=== PATIENT | female | born 1945 | race Caucasian/White ===

== ENCOUNTER 2016-10-03 08:31 | Emergency (ER) | payer BC ==
--- NOTE | 2016-10-03 10:09 | REP ---
RIGHT RIB SERIES: Four views of the right ribs are performed. I see no fracture or bone lesion. An accompanying view of the chest demonstrates no acute infiltrate. The heart is normal in size. There is some calcification of the thoracic aorta. IMPRESSION: No evidence of right rib fracture. Signed by Kory Goyal MD 10/03/2016 12:46 P
--- NOTE | 2016-10-03 10:52 | EDDOCDS ---
Physician Documentation [facility] Name: Niocle Maurer Age: 70 yrs Sex: Female : 1945 Arrival Date: 10/03/2016 Time: 08:31 Bed PR Private MD: Tl Roberts E. Disposition: 10/03/16 10:40 Discharged to Home/Self Care. Impression: Abrasion of right elbow, Contusion of right back wall of thorax. - Condition is Stable. - Discharge Instructions: Rib Contusion, Abrasion, Vtmr-ec-[id number], Elbow Contusion, Hydf-jh-Gxbt. - Medication Reconciliation, Local Pharmacy Hours form. - Follow up: Tl Roberts; When: Call to arrange an appointment; Reason: Further diagnostic work-up, Recheck today's complaints, Continuance of care. - Problem is new. - Symptoms are unchanged. Historical: - Allergies: Seasonal allergies; - Home Meds: 1. gabapentin 300 mg Oral cap 1 cap 3 times per day (Last dose: 10/03/2016 07:30) 2. ramipril 2.5 mg Oral cap 1 cap once daily (Last dose: 10/03/2016 07:30) 3. metformin 750 mg Oral Tb24 bid (Last dose: 10/03/2016 07:30) 4. Iron supplement BID (Last dose: 10/03/2016 07:30) 5. Lipitor 40 mg Oral tab 1 tab once daily (Last dose: 10/02/2016) 6. Vitamin D Oral 5000 unit daily (Last dose: 10/03/2016 07:30) 7. vitamin E 1,000 unit Oral cap (Last dose: 10/03/2016 07:30) 8. Vitamin B-12 Oral 1,000 mcg daily (Last dose: 10/03/2016 07:30) - PMHx: Diabetes - NIDDM: controlled; Hypercholesterolemia; Hypertension; DDD; Back and neck pain; - PSHx: Hysterectomy; Cholecystectomy; Right femur repair as a child; Lithotripsy; - Social history: Smoking status: Patient states former smoker of tobacco. No barriers to communication noted, The patient speaks fluent Latvian. - Family history: Not pertinent. - : The pt / caregiver states he / she is not on anticoagulants. Home medication list is obtained from the patient. - Exposure Risk Screening:: None identified. Vital Signs: 10/03 08:51 BP 164 / 73; Pulse 65; Resp 20; Temp 98.2(T); Pulse Ox 100% on R/A; Weight 71.67 kg / dwg 158.01 lbs; Height 5 ft. 3 in. (160.02 cm); Pain 5/10; 10:49 BP 152 / 68; Pulse 70; Resp 20; Temp 97.8(T); Pulse Ox 99% on R/A; dwg 08:51 Body Mass Index 27.99 (71.67 kg, 160.02 cm) [facility] MDM: 09:02 Rib Unilat W/PA Chest Only Ordered. EDMO 09:17 [facility] Payment Agreement was scanned into [employer] and attached to record. jp5 09:17 Financial registration complete. jp5 Signatures: Dispatcher [employer] Kory Orellana, RN RN dwMilan Hernadez PA PA btw Price, Jennalee jp5 The chart was reviewed and I authenticate all verbal orders and agree with the evaluation and treatment provided.Attachments: 09:17 [facility] Payment Agreement jp5 MTDJean Carlos
--- NOTE | 2016-10-03 10:52 | EDDOCDS ---
Nurse's Notes [facility] Name: Nicole Maurer Age: 70 yrs Sex: Female : 1945 Arrival Date: 10/03/2016 Time: 08:31 Bed PR1 / 25 Private MD: Tl Roberts E. Diagnosis: Abrasion of right elbow;Contusion of right back wall of thorax Presentation: 10/03 08:35 Presenting complaint: Patient states: Mid back and right elbow pain since slipping on a dwg step at 630AM today, abrasion noted to right elbow, no head pain, no LOC. Adult Sepsis Screening: The patient does not have new or worsening altered mentation. Patient's respiratory rate is less than 22. Systolic blood pressure is greater than 100. Patient has a qSOFA score of 0- Negative Sepsis Screen. Suicide/Homicide risk assessment- the patient denies having any suicidal and/or homicidal ideations and does not present with any other emotional, behavioral or mental health complaints. 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 Transition of care: patient was not received from another setting of care. 08:35 Acuity: PEBBLES Level 4 dwg 08:35 Method Of Arrival: Walkin/Carried/Asstd dwg Triage Assessment: 08:51 General: Appears in no apparent distress. Pain: Pain currently is 5 out of 10 on a pain dwg scale. Historical: - Allergies: Seasonal allergies; - Home Meds: 1. gabapentin 300 mg Oral cap 1 cap 3 times per day (Last dose: 10/03/2016 07:30) 2. ramipril 2.5 mg Oral cap 1 cap once daily (Last dose: 10/03/2016 07:30) 3. metformin 750 mg Oral Tb24 bid (Last dose: 10/03/2016 07:30) 4. Iron supplement BID (Last dose: 10/03/2016 07:30) 5. Lipitor 40 mg Oral tab 1 tab once daily (Last dose: 10/02/2016) 6. Vitamin D Oral 5000 unit daily (Last dose: 10/03/2016 07:30) 7. vitamin E 1,000 unit Oral cap (Last dose: 10/03/2016 07:30) 8. Vitamin B-12 Oral 1,000 mcg daily (Last dose: 10/03/2016 07:30) - PMHx: Diabetes - NIDDM: controlled; Hypercholesterolemia; Hypertension; DDD; Back and neck pain; - PSHx: Hysterectomy; Cholecystectomy; Right femur repair as a child; Lithotripsy; - Social history: Smoking status: Patient states former smoker of tobacco. No barriers to communication noted, The patient speaks fluent Italian. - Family history: Not pertinent. - : The pt / caregiver states he / she is not on anticoagulants. Home medication list is obtained from the patient. - Exposure Risk Screening:: None identified. Screenin:54 Screening information is obtained from the patient. Fall risk: No risks identified. dwg Assistance ADL's: requires no assistance with activities of daily living. Abuse/DV Screen: The patient / caregiver reports he/she is: not in a situation that causes fear, pain or injury. Nutritional screening: No deficits noted. Advance Directives: Currently, there is no health care proxy. There is no active DNR order. There is no living will. There is no Power of Block Breaker. Advance directive information has not previously been placed in an [facility] medical record. Further advance directive information is declined. home support is adequate. Assessment: 09:53 General: Appears in no apparent distress, Behavior is cooperative, pleasant. Pain: Pain [facility] currently is 7 out of 10 on a pain scale. Neurological: Level of Consciousness is awake, alert, Oriented to person, place, time. Respiratory: Airway is patent is compromised Respiratory effort is even, unlabored, Respiratory pattern is regular, symmetrical, Breath sounds are clear bilaterally. 09:53 Musculoskeletal: Circulation, motion, and sensation intact Range of motion intact in [facility] all extremities. Vital Signs: 08:51 BP 164 / 73; Pulse 65; Resp 20; Temp 98.2(T); Pulse Ox 100% on R/A; Weight 71.67 kg; [facility] Height 5 ft. 3 in. (160.02 cm); Pain 5/10; 10:49 BP 152 / 68; Pulse 70; Resp 20; Temp 97.8(T); Pulse Ox 99% on R/A; [facility] 08:51 Body Mass Index 27.99 (71.67 kg, 160.02 cm) [facility] Vitals: 08:51 Log In Time: October 03, 2016 at 08:28. [facility] ED Course: 08:32 Patient visited by Ava Morris Reg. lg 08:32 Tl Roberts is Private Physician. lg 08:32 Patient moved to Waiting lg 08:38 Triage Initiated dwg 08:53 Milan [facility]osa [facility] btw 08:53 Rosalba Yusuf MD is Attending Physician. btw 08:53 Patient moved to Triage 1 dwg 08:54 Patient visited by Milan Sosa PA. btw 09:17 [facility] Payment Agreement was scanned into [employer] and attached to record. jp5 09:20 Patient name changed from Nicole\S\A\S\Shawcross\S\ to Incole\S\Gianna\S\Shawcross. EDMS 09:23 Patient moved to Radiology bh4 09:25 Patient moved to TR1 dwg 09:26 Patient moved to Radiology bh4 09:41 Patient moved to TR1 bh4 09:54 Patient visited by Kory Torres RN. dwg 10:34 Rib Unilat W/PA Chest Only Returned. EDMS 10:39 Tl Roberts is Referral Physician. btw 10:43 Patient moved to PR1 / 25 dwg 10:51 No IV's were initiated during this patient's visit. No procedures done that require dwg assistance. 10:52 The patient / caregiver is instructed regarding the plan of care and ED course. dwg Order Results: Radiology Order: Rib Unilat W/PA Chest Only Test: Rib Unilat W/PA Chest Only REASON FOR EXAMINATION: pain Right posterior lower ribs;Trauma; ; RIGHT RIB SERIES:; ; Four views of the right ribs are performed.; ; I see no fracture or bone lesion.; ; An accompanying view of the chest demonstrates no acute infiltrate. The heart is; normal in size. There is some calcification of the thoracic aorta.; ; IMPRESSION:; No evidence of right rib fracture.; ; ; ; Unreviewed; Outcome: 10:40 Discharge ordered by Provider. btw 10:51 Discharge Assessment: Patient awake, alert and oriented x 3. No cognitive and/or dwg functional deficits noted. Patient verbalized understanding of disposition instructions. patient administered narcotics - no. The following High Risk Discharge criteria are identified: None. Discharged to home ambulatory. Condition: good Condition: stable. No special radiology studies were completed. Property sent home with patient. 10:52 Patient left the ED. dwg Signatures: Dispatcher [employer] Kory Orellana, ALLEY RN Ava Dillon Reg Reg lg [facility], [facility] Milan Sosa PA PA btw Price, Jennalee jp5 MTDD
--- NOTE | 2016-10-05 11:52 | EDDOCDS ---
Physician Documentation [facility] Name: Nicole Maurer Age: 70 yrs Sex: Female : 1945 Arrival Date: 10/03/2016 Time: 08:31 Bed PR Private MD: Tl Roberts E. Disposition: 10/03/16 10:40 Discharged to Home/Self Care. Impression: Abrasion of right elbow, Contusion of right back wall of thorax. - Condition is Stable. - Discharge Instructions: Rib Contusion, Abrasion, Slii-rl-Lceo, Elbow Contusion, Syvf-yc-Lckp. - Medication Reconciliation, Local Pharmacy Hours form. - Follow up: Tl Roberts; When: Call to arrange an appointment; Reason: Further diagnostic work-up, Recheck today's complaints, Continuance of care. - Problem is new. - Symptoms are unchanged. Historical: - Allergies: Seasonal allergies; - Home Meds: 1. gabapentin 300 mg Oral cap 1 cap 3 times per day (Last dose: 10/03/2016 07:30) 2. ramipril 2.5 mg Oral cap 1 cap once daily (Last dose: 10/03/2016 07:30) 3. metformin 750 mg Oral Tb24 bid (Last dose: 10/03/2016 07:30) 4. Iron supplement BID (Last dose: 10/03/2016 07:30) 5. Lipitor 40 mg Oral tab 1 tab once daily (Last dose: 10/02/2016) 6. Vitamin D Oral 5000 unit daily (Last dose: 10/03/2016 07:30) 7. vitamin E 1,000 unit Oral cap (Last dose: 10/03/2016 07:30) 8. Vitamin B-12 Oral 1,000 mcg daily (Last dose: 10/03/2016 07:30) - PMHx: Diabetes - NIDDM: controlled; Hypercholesterolemia; Hypertension; DDD; Back and neck pain; - PSHx: Hysterectomy; Cholecystectomy; Right femur repair as a child; Lithotripsy; - Social history: Smoking status: Patient states former smoker of tobacco. No barriers to communication noted, The patient speaks fluent Surinamese. - Family history: Not pertinent. - : The pt / caregiver states he / she is not on anticoagulants. Home medication list is obtained from the patient. - Exposure Risk Screening:: None identified. Vital Signs: 10/03 08:51 BP 164 / 73; Pulse 65; Resp 20; Temp 98.2(T); Pulse Ox 100% on R/A; Weight 71.67 kg / dwg 158.01 lbs; Height 5 ft. 3 in. (160.02 cm); Pain 5/10; 10:49 BP 152 / 68; Pulse 70; Resp 20; Temp 97.8(T); Pulse Ox 99% on R/A; dwg 08:51 Body Mass Index 27.99 (71.67 kg, 160.02 cm) [facility] MDM: 09:02 Rib Unilat W/PA Chest Only Ordered. EDMS : [facility] Payment Agreement was scanned into [employer] and attached to record. jp5 :17 Financial registration complete. jp5 14:42 T-Sheet-- Draft Copy was scanned into [employer] and attached to record. gb Signatures: Dispatcher [employer] EDKory Marcelo RN RN dwg Charo William, Reg Reg gb Milan Sosa PA PA btw Franky Saldana jp5 The chart was reviewed and I authenticate all verbal orders and agree with the evaluation and treatment provided.Attachments: : [facility] Payment Agreement jp5 14:42 T-Sheet-- Draft Copy gb Chart Complete MTDD
--- NOTE | 2016-10-05 11:52 | EDDOCDS ---
Physician Documentation [facility] Name: Nicole Maurer Age: 70 yrs Sex: Female : 1945 Arrival Date: 10/03/2016 Time: 08:31 Bed PR Private MD: Tl Roberts E. Disposition: 10/03/16 10:40 Discharged to Home/Self Care. Impression: Abrasion of right elbow, Contusion of right back wall of thorax. - Condition is Stable. - Discharge Instructions: Rib Contusion, Abrasion, Oynp-wh-Ixyw, Elbow Contusion, Byko-an-Xsgk. - Medication Reconciliation, Local Pharmacy Hours form. - Follow up: Tl Roberts; When: Call to arrange an appointment; Reason: Further diagnostic work-up, Recheck today's complaints, Continuance of care. - Problem is new. - Symptoms are unchanged. Historical: - Allergies: Seasonal allergies; - Home Meds: 1. gabapentin 300 mg Oral cap 1 cap 3 times per day (Last dose: 10/03/2016 07:30) 2. ramipril 2.5 mg Oral cap 1 cap once daily (Last dose: 10/03/2016 07:30) 3. metformin 750 mg Oral Tb24 bid (Last dose: 10/03/2016 07:30) 4. Iron supplement BID (Last dose: 10/03/2016 07:30) 5. Lipitor 40 mg Oral tab 1 tab once daily (Last dose: 10/02/2016) 6. Vitamin D Oral 5000 unit daily (Last dose: 10/03/2016 07:30) 7. vitamin E 1,000 unit Oral cap (Last dose: 10/03/2016 07:30) 8. Vitamin B-12 Oral 1,000 mcg daily (Last dose: 10/03/2016 07:30) - PMHx: Diabetes - NIDDM: controlled; Hypercholesterolemia; Hypertension; DDD; Back and neck pain; - PSHx: Hysterectomy; Cholecystectomy; Right femur repair as a child; Lithotripsy; - Social history: Smoking status: Patient states former smoker of tobacco. No barriers to communication noted, The patient speaks fluent Azerbaijani. - Family history: Not pertinent. - : The pt / caregiver states he / she is not on anticoagulants. Home medication list is obtained from the patient. - Exposure Risk Screening:: None identified. Vital Signs: 10/03 08:51 BP 164 / 73; Pulse 65; Resp 20; Temp 98.2(T); Pulse Ox 100% on R/A; Weight 71.67 kg / dwg 158.01 lbs; Height 5 ft. 3 in. (160.02 cm); Pain 5/10; 10:49 BP 152 / 68; Pulse 70; Resp 20; Temp 97.8(T); Pulse Ox 99% on R/A; dwg 08:51 Body Mass Index 27.99 (71.67 kg, 160.02 cm) [facility] MDM: 09:02 Rib Unilat W/PA Chest Only Ordered. EDMS : [facility] Payment Agreement was scanned into [employer] and attached to record. jp5 :17 Financial registration complete. jp5 14:42 T-Sheet-- Draft Copy was scanned into [employer] and attached to record. gb Signatures: Dispatcher [employer] EDKory Marcelo RN RN dwg Charo William, Reg Reg gb Milan Sosa PA PA btw Franky Saldana jp5 The chart was reviewed and I authenticate all verbal orders and agree with the evaluation and treatment provided.Attachments: : [facility] Payment Agreement jp5 14:42 T-Sheet-- Draft Copy gb Chart Complete MTDD
--- NOTE | 2016-10-05 11:52 | EDDOCDS ---
Nurse's Notes [facility] Name: Nicole Maurer Age: 70 yrs Sex: Female : 1945 Arrival Date: 10/03/2016 Time: 08:31 Bed PR1 / 25 Private MD: Tl Roberts E. Diagnosis: Abrasion of right elbow;Contusion of right back wall of thorax Presentation: 10/03 08:35 Presenting complaint: Patient states: Mid back and right elbow pain since slipping on a dwg step at 630AM today, abrasion noted to right elbow, no head pain, no LOC. Adult Sepsis Screening: The patient does not have new or worsening altered mentation. Patient's respiratory rate is less than 22. Systolic blood pressure is greater than 100. Patient has a qSOFA score of 0- Negative Sepsis Screen. Suicide/Homicide risk assessment- the patient denies having any suicidal and/or homicidal ideations and does not present with any other emotional, behavioral or mental health complaints. Status: Patient is not a rehabilitation services aide or dependent. Transition of care: patient was not received from another setting of care. 08:35 Acuity: PEBBLES Level 4 dwg 08:35 Method Of Arrival: Walkin/Carried/Asstd dwg Triage Assessment: 08:51 General: Appears in no apparent distress. Pain: Pain currently is 5 out of 10 on a pain dwg scale. Historical: - Allergies: Seasonal allergies; - Home Meds: 1. gabapentin 300 mg Oral cap 1 cap 3 times per day (Last dose: 10/03/2016 07:30) 2. ramipril 2.5 mg Oral cap 1 cap once daily (Last dose: 10/03/2016 07:30) 3. metformin 750 mg Oral Tb24 bid (Last dose: 10/03/2016 07:30) 4. Iron supplement BID (Last dose: 10/03/2016 07:30) 5. Lipitor 40 mg Oral tab 1 tab once daily (Last dose: 10/02/2016) 6. Vitamin D Oral 5000 unit daily (Last dose: 10/03/2016 07:30) 7. vitamin E 1,000 unit Oral cap (Last dose: 10/03/2016 07:30) 8. Vitamin B-12 Oral 1,000 mcg daily (Last dose: 10/03/2016 07:30) - PMHx: Diabetes - NIDDM: controlled; Hypercholesterolemia; Hypertension; DDD; Back and neck pain; - PSHx: Hysterectomy; Cholecystectomy; Right femur repair as a child; Lithotripsy; - Social history: Smoking status: Patient states former smoker of tobacco. No barriers to communication noted, The patient speaks fluent Armenian. - Family history: Not pertinent. - : The pt / caregiver states he / she is not on anticoagulants. Home medication list is obtained from the patient. - Exposure Risk Screening:: None identified. Screenin:54 Screening information is obtained from the patient. Fall risk: No risks identified. dwg Assistance ADL's: requires no assistance with activities of daily living. Abuse/DV Screen: The patient / caregiver reports he/she is: not in a situation that causes fear, pain or injury. Nutritional screening: No deficits noted. Advance Directives: Currently, there is no health care proxy. There is no active DNR order. There is no living will. There is no Power of Tape Recorder Mechanic. Advance directive information has not previously been placed in an [facility] medical record. Further advance directive information is declined. home support is adequate. Assessment: 09:53 General: Appears in no apparent distress, Behavior is cooperative, pleasant. Pain: Pain [facility] currently is 7 out of 10 on a pain scale. Neurological: Level of Consciousness is awake, alert, Oriented to person, place, time. Respiratory: Airway is patent is compromised Respiratory effort is even, unlabored, Respiratory pattern is regular, symmetrical, Breath sounds are clear bilaterally. 09:53 Musculoskeletal: Circulation, motion, and sensation intact Range of motion intact in [facility] all extremities. Vital Signs: 08:51 BP 164 / 73; Pulse 65; Resp 20; Temp 98.2(T); Pulse Ox 100% on R/A; Weight 71.67 kg; [facility] Height 5 ft. 3 in. (160.02 cm); Pain 5/10; 10:49 BP 152 / 68; Pulse 70; Resp 20; Temp 97.8(T); Pulse Ox 99% on R/A; [facility] 08:51 Body Mass Index 27.99 (71.67 kg, 160.02 cm) [facility] Vitals: 08:51 Log In Time: October 03, 2016 at 08:28. [facility] ED Course: 08:32 Patient visited by Ava Morris Reg. lg 08:32 Tl Roberts is Private Physician. lg 08:32 Patient moved to Waiting lg 08:38 Triage Initiated dwg 08:53 [facility] btw 08:53 Rosalba Yusuf MD is Attending Physician. btw 08:53 Patient moved to Triage 1 dwg 08:54 Patient visited by Milan Sosa PA. btw 09:17 [facility] Payment Agreement was scanned into [employer] and attached to record. jp5 09:20 Patient name changed from Nicole\S\A\S\Shawcross\S\ to Nicole\S\Gianna\S\Shawcross. EDMS 09:23 Patient moved to Radiology bh4 09:25 Patient moved to TR1 dwg 09:26 Patient moved to Radiology bh4 09:41 Patient moved to TR1 bh4 09:54 Patient visited by Kory Torres RN. dwg 10:34 Rib Unilat W/PA Chest Only Returned. EDMS 10:39 Tl Roberts is Referral Physician. btw 10:43 Patient moved to PR1 / 25 dwg 10:51 No IV's were initiated during this patient's visit. No procedures done that require dwg assistance. 10:52 The patient / caregiver is instructed regarding the plan of care and ED course. dwg 14:42 T-Sheet-- Draft Copy was scanned into [employer] and attached to record. gb Order Results: Radiology Order: Rib Unilat W/PA Chest Only Test: Rib Unilat W/PA Chest Only REASON FOR EXAMINATION: pain Right posterior lower ribs;Trauma; RIGHT RIB SERIES:; ; Four views of the right ribs are performed.; ; I see no fracture or bone lesion.; ; An accompanying view of the chest demonstrates no acute infiltrate. The heart is; normal in size. There is some calcification of the thoracic aorta.; ; IMPRESSION:; ; No evidence of right rib fracture.; ; ; Signed by; Kory Goyal MD 10/03/2016 12:46 P; Outcome: 10:40 Discharge ordered by Provider. btw 10:51 Discharge Assessment: Patient awake, alert and oriented x 3. No cognitive and/or dwg functional deficits noted. Patient verbalized understanding of disposition instructions. patient administered narcotics - no. The following High Risk Discharge criteria are identified: None. Discharged to home ambulatory. Condition: good Condition: stable. No special radiology studies were completed. Property sent home with patient. 10:52 Patient left the ED. daryl Signatures: Dispatcher [employer] Kory Orellana, RN RN dw Charo William, Reg Reg gb Ava Morris, Reg Reg lg Benson, Heide bh4 Milan Sosa PA PA btw Price, Jennalee 5 Chart Complete MTDD
== END 2016-10-03 10:52 | disposition home or self-care (01) ==
LOC: M ED 08:31
DX: S20.221A Contusion of right back wall of thorax, initial encounter (principal); S50.311A Abrasion of right elbow, initial encounter; W01.0XXA Fall on same level from slipping, tripping and stumbling without subsequent striking against object, initial encounter; Y92.098 Other place in other non-institutional residence as the place of occurrence of the external cause; Y93.89 Activity, other specified; Y99.8 Other external cause status; E11.9 Type 2 diabetes mellitus without complications; I10 Essential (primary) hypertension; E78.00 Pure hypercholesterolemia, unspecified; M51.9 Unspecified thoracic, thoracolumbar and lumbosacral intervertebral disc disorder; J30.2 Other seasonal allergic rhinitis; Z79.899 Other long term (current) drug therapy; Z79.84 Long term (current) use of oral hypoglycemic drugs

== ENCOUNTER → 2016-10-12 | Outpatient (CLI) | payer BC ==
[2016-10-12 18:18] LABS: BASO % 0.2 % (0.0-1.0); EOS # 0.1 K/mm3 (0.0-0.50); EOS % 2.5 % (0.0-3.0); LARGE UNSTAINED CELL # 0.1 K/mm3 (0.0-0.4); LARGE UNSTAINED CELL % 1.4 % (0.0-4.0); LYMPH # 1.4 K/mm3 (1.5-4.5); LYMPH % 31.3 % (24.0-44.0); MEAN CORPUSCULAR HEMOGLOBIN 27.4 pg (27.0-33.0); MEAN CORPUSCULAR HGB CONC 31.3 g/dl (32.0-36.5); MEAN CORPUSCULAR VOLUME 87.6 fl (80.0-96.0); MONO # 0.3 K/mm3 (0.0-0.8); MONO % 7.4 % (0.0-5.0); NEUTROPHILS # 2.5 K/mm3 (1.8-7.7); NEUTROPHILS % 57.2 % (36.0-66.0); PLATELET COUNT, AUTOMATED 230 k/mm3 (150-450); RED CELL DISTRIBUTION WIDTH 13.4 % (11.5-14.5); WHITE BLOOD COUNT 4.3 K/mm3 (4.0-10.0)
[2016-10-12 18:37] LABS: FERRITIN 5 NG/ML (8-252); FREE T4 1.58 NG/DL (0.76-1.46); PERCENT SATURATION 12.9 % (13.2-37.4); TOTAL IRON BINDING CAPACITY 441 UG/DL (250-450)
== END ==
LOC: M WUC 10:19
PROVIDERS: ATTEND Family Medicine
DX: D47.2 Monoclonal gammopathy (principal); D50.9 Iron deficiency anemia, unspecified; E03.9 Hypothyroidism, unspecified; K21.9 Gastro-esophageal reflux disease without esophagitis

== ENCOUNTER → 2016-11-30 | Outpatient (CLI) | payer BC ==
[2016-11-30 19:52] LABS: BASO % 0.3 % (0.0-1.0); EOS # 0.1 K/mm3 (0.0-0.50); EOS % 1.3 % (0.0-3.0); LARGE UNSTAINED CELL # 0.1 K/mm3 (0.0-0.4); LARGE UNSTAINED CELL % 1.2 % (0.0-4.0); LYMPH # 1.7 K/mm3 (1.5-4.5); LYMPH % 33.6 % (24.0-44.0); MEAN CORPUSCULAR HGB CONC 30.3 g/dl (32.0-36.5); MEAN CORPUSCULAR VOLUME 89.3 fl (80.0-96.0); MONO # 0.3 K/mm3 (0.0-0.8); MONO % 6.1 % (0.0-5.0); NEUTROPHILS # 2.7 K/mm3 (1.8-7.7); NEUTROPHILS % 57.5 % (36.0-66.0); PLATELET COUNT, AUTOMATED 229 k/mm3 (150-450); RED CELL DISTRIBUTION WIDTH 13.4 % (11.5-14.5); WHITE BLOOD COUNT 4.8 K/mm3 (4.0-10.0)
== END ==
LOC: M WUC 08:28
PROVIDERS: ATTEND Family Medicine
DX: D50.9 Iron deficiency anemia, unspecified (principal); E11.9 Type 2 diabetes mellitus without complications

== ENCOUNTER → 2016-12-03 | Outpatient (REF) | payer BC | LOC: M SFHCPLAZ 12:23 | PROVIDERS: ATTEND Family Medicine | DX: R07.9 Chest pain, unspecified (principal) ==

== ENCOUNTER → 2016-12-06 | Outpatient (CLI) | payer BC ==
--- NOTE | 2016-12-06 15:54 | REPMRS ---
Patient History The patient states she has not had a clinical breast exam in over a year. Patient is postmenopausal. Family history of breast cancer in sister at age 70. Benign radio exam breast specimen of the left breast, October 18, 2013. Benign stereotatic loc for ea lesion of the left breast, October 18, 2013. Digital Woman Screen Mammo: December 06, 2016 - Exam #: [id number] Bilateral CC and MLO view(s) were taken. Technologist: Patricia Aguilar, Technologist Prior study comparison: December 06, 2015, digital woman screen mammo performed at [facility]. November 16, 2014, bilateral digital mammo screening bilat, performed at [facility]. FINDINGS: There are scattered fibroglandular densities. There has been no change in the appearance of the mammogram from the prior studies. There is a mild amount of residual fibroglandular tissue which is fairly symmetric with scattered fibronodular densities unchanged. There is no interval development of dominant mass, architectural distortion, or clustered microcalcification suggestive of malignancy. Stereotactic clip in the left breast unchanged. There are scattered, small, benign calcifications of doubtful clinical significance. No significant changes when compared with prior studies. ASSESSMENT: BI-RADS/ACR category 2 mammogram. Benign finding(s). Recommendation Routine screening mammogram in 1 year (for women over age 40). This mammogram was interpreted with the aid of an FDA-approved computer-aided dectection system. A. Negative x-ray reports should not delay biopsy if a dominant or clinically suspicious mass is present. B. Four to eight percent of cancers are not identified by mammography. C. Adenosis and dense breast may obscure an underlying neoplasm. Electronically Signed By: Luke Simpson MD 12/06/16 2277
== END ==
LOC: M WHC 15:22
PROVIDERS: ATTEND Family Medicine
DX: Z12.31 Encounter for screening mammogram for malignant neoplasm of breast (principal); Z78.0 Asymptomatic menopausal state; R92.8 Other abnormal and inconclusive findings on diagnostic imaging of breast

== ENCOUNTER → 2017-02-05 | Outpatient (CLI) | payer BC ==
[~2017-02-05] VITALS: Ht 160 cm; Wt 67.6 kg
[~2017-02-05] MED LIST: ASPI1TAB PO; DEXI60CA PO; GABA-283 PO; LEVO112T25 PO; LIDOCAINE 2% INJ 100 MG/5 ML SDV (FOR ANES.) As Ordered ONE; LIPI20TA PO; METF750T PO; NS 1,000 ML IV ONE; POLY150C4 PO; PROPOFOL 200 MG/20 ML VIAL As Ordered ONE; RAMI25CA PO; VITA100037 PO; VITA100072 PO; VOLT1GEL24 TD
--- NOTE | 2017-02-05 12:23 | ROOR ---
Patient Name: Nicole Maurer Procedure Date: 02/05/2017 12:07 PM Date of : 1945 Age: 71 Room: [facility] Gender: Female Note Status: Finalized Procedure: Upper GI endoscopy + Small bowel bx. Indications: Iron deficiency anemia Providers: Hernandez Lopes MD Referring MD: Tl Roberts MD Requesting Provider: Medicines: Monitored Anesthesia Care Complications: No immediate complications. Procedure: Pre-Anesthesia Assessment: - The heart rate, respiratory rate, oxygen saturations, blood pressure, adequacy of pulmonary ventilation, and response to care were monitored throughout the procedure. The Endoscope was introduced through the mouth, and advanced to the second part of duodenum. The upper GI endoscopy was accomplished without difficulty. The patient tolerated the procedure well. Findings: The Z-line was irregular and was found 35 cm from the incisors. A medium-sized hiatal hernia was present. No other significant abnormalities were identified in a careful examination of the stomach. The exam of the duodenum was otherwise normal. Biopsies for histology were taken with a cold forceps in the first portion of the duodenum for evaluation of celiac disease. The exam was otherwise without abnormality. Impression: - Z-line irregular, 35 cm from the incisors. - Medium-sized hiatal hernia. - The examination was otherwise normal. - Biopsies were taken with a cold forceps for evaluation of celiac disease. - The examination was otherwise normal. Recommendation: - Patient has a contact number available for emergencies. The signs and symptoms of potential delayed complications were discussed with the patient. Return to normal activities tomorrow. Written discharge instructions were provided to the patient. - High fiber diet. - Discharge patient to home. - Continue present medications. - Await pathology results. - Telephone GI clinic for pathology results in 1 week. - Return to referring physician. - The findings and recommendations were discussed with the patient's family. Hernandez Lopes MD Hernandez Lopes MD 02/05/2017 12:22:56 PM This report has been signed electronically. Number of Addenda: 0 Note Initiated On: 02/05/2017 12:07 PM Estimated Blood Loss: Estimated blood loss: none.
--- NOTE | 2017-02-05 12:38 | ROOR ---
Patient Name: Nicole Maurer Procedure Date: 02/05/2017 12:08 PM Date of : 1945 Age: 71 Room: [facility] Gender: Female Note Status: Finalized Procedure: Total Colonoscopy to Cecum Indications: Iron deficiency anemia Providers: Hernandez Lopes MD Referring MD: Tl Roberts MD Requesting Provider: Medicines: Monitored Anesthesia Care Complications: No immediate complications. Procedure: Pre-Anesthesia Assessment: - The heart rate, respiratory rate, oxygen saturations, blood pressure, adequacy of pulmonary ventilation, and response to care were monitored throughout the procedure. The Colonoscope was introduced through the anus and advanced to the cecum, identified by appendiceal orifice and ileocecal valve. The colonoscopy was performed without difficulty. The patient tolerated the procedure well. The quality of the bowel preparation was good. Findings: The perianal and digital rectal examinations were normal. Non-bleeding internal hemorrhoids were found during retroflexion. The hemorrhoids were small and Grade I (internal hemorrhoids that do not prolapse). Scattered small and large-mouthed diverticula were found in the recto-sigmoid colon, sigmoid colon and descending colon. The exam was otherwise without abnormality on direct and retroflexion views. Impression: - Non-bleeding internal hemorrhoids. - Diverticulosis in the recto-sigmoid colon, in the sigmoid colon and in the descending colon. - The examination was otherwise normal on direct and retroflexion views. - No specimens collected. - The exam was otherwise normal to the cecum. Recommendation: - Patient has a contact number available for emergencies. The signs and symptoms of potential delayed complications were discussed with the patient. Return to normal activities tomorrow. Written discharge instructions were provided to the patient. - High fiber diet. - Discharge patient to home. - Continue present medications. - Repeat colonoscopy for symptoms only. - Return to referring physician. - The findings and recommendations were discussed with the patient's family. Hernandez Lopes MD Hernandez Lopes MD 02/05/2017 12:38:19 PM This report has been signed electronically. Number of Addenda: 0 Note Initiated On: 02/05/2017 12:08 PM Estimated Blood Loss: Estimated blood loss: none.
[2017-02-05 12:45] VITALS: BP 143/63
== END | disposition home or self-care (01) ==
LOC: M OPP 11:16
PROVIDERS: ATTEND Internal Medicine Gastroenterology
DX: D50.9 Iron deficiency anemia, unspecified (principal); R63.4 Abnormal weight loss; R68.81 Early satiety; R11.0 Nausea; K64.0 First degree hemorrhoids; K57.30 Diverticulosis of large intestine without perforation or abscess without bleeding; K22.8 Other specified diseases of esophagus; K44.9 Diaphragmatic hernia without obstruction or gangrene; K59.00 Constipation, unspecified; R07.89 Other chest pain; I10 Essential (primary) hypertension; E78.5 Hyperlipidemia, unspecified; E11.9 Type 2 diabetes mellitus without complications; E03.9 Hypothyroidism, unspecified; K76.0 Fatty (change of) liver, not elsewhere classified; R12 Heartburn; M19.90 Unspecified osteoarthritis, unspecified site; G47.8 Other sleep disorders; R06.83 Snoring; Z87.442 Personal history of urinary calculi; Z91.048 Other nonmedicinal substance allergy status; Z79.82 Long term (current) use of aspirin; Z79.84 Long term (current) use of oral hypoglycemic drugs; Z79.899 Other long term (current) drug therapy; Z87.891 Personal history of nicotine dependence; Z80.3 Family history of malignant neoplasm of breast

== ENCOUNTER → 2017-03-03 | Outpatient (REF) | payer BC ==
[~2017-03-03] MED LIST changes: -LIDOCAINE 2% INJ 100 MG/5 ML SDV (FOR ANES.) As Ordered ONE; -NS 1,000 ML IV ONE; -PROPOFOL 200 MG/20 ML VIAL As Ordered ONE
[2017-03-03 11:51] LABS: BASO % 0.4 % (0.0-1.0); EOS # 0.1 K/mm3 (0.0-0.50); EOS % 1.8 % (0.0-3.0); LARGE UNSTAINED CELL # 0.1 K/mm3 (0.0-0.4); LARGE UNSTAINED CELL % 1.5 % (0.0-4.0); LYMPH # 1.5 K/mm3 (1.5-4.5); LYMPH % 34.1 % (24.0-44.0); MEAN CORPUSCULAR HEMOGLOBIN 28.4 pg (27.0-33.0); MEAN CORPUSCULAR HGB CONC 31.9 g/dl (32.0-36.5); MEAN CORPUSCULAR VOLUME 88.8 fl (80.0-96.0); MONO # 0.2 K/mm3 (0.0-0.8); MONO % 5.5 % (0.0-5.0); NEUTROPHILS # 2.5 K/mm3 (1.8-7.7); NEUTROPHILS % 56.7 % (36.0-66.0); PLATELET COUNT, AUTOMATED 207 k/mm3 (150-450); RED CELL DISTRIBUTION WIDTH 14.1 % (11.5-14.5); WHITE BLOOD COUNT 4.5 K/mm3 (4.0-10.0)
[2017-03-03 12:42] LABS: ALBUMIN 3.7 GM/DL (3.2-5.2); ALBUMIN/GLOBULIN RATIO 1.28 (1.00-1.93); BILIRUBIN,TOTAL 0.3 MG/DL (0.2-1.0); CALCIUM LEVEL 9.2 MG/DL (8.8-10.2); GLOMERULAR FILTRATION RATE 58.2 (>39); PERCENT SATURATION 20.5 % (13.2-37.4); POTASSIUM SERUM 4.8 MEQ/L (3.5-5.1); TOTAL PROTEIN 6.6 GM/DL (6.4-8.2)
[2017-03-04 12:44] LABS: PRETREATED FOLATE FOR RBCFOL 7.6 NG/ML
== END ==
LOC: M LABDRAW1 11:14
PROVIDERS: ATTEND Family Medicine
DX: E53.8 Deficiency of other specified B group vitamins (principal); E55.9 Vitamin D deficiency, unspecified; D50.9 Iron deficiency anemia, unspecified; E11.9 Type 2 diabetes mellitus without complications

== ENCOUNTER → 2017-03-08 | Outpatient (CLI) | payer BC ==
[~2017-03-08] MED LIST changes: +CYCL5TAB PO; -DEXI60CA PO; +DEXI60CA2 PO; +PRED20TA PO; -VITA100037 PO; +VITA100067 PO; +VOLT1GEL15 TD; -VOLT1GEL24 TD
--- NOTE | 2017-03-08 09:32 | REP ---
Clinical: Pain. Spondylosis. Technique: AP, lateral, bilateral oblique, flexion/extension, open-mouth and swimmer's views of the cervical spine. Findings: Alignment and lordosis maintained. No acute fracture / compression injury or subluxation. Moderate to early advanced multilevel degenerative changes are appreciated including marginal spurring, endplate sclerosis and minimal hypertrophic facet changes. Findings are most pronounced at the C5-6 and C4-5 levels. Open mouth view demonstrates normal C1-C2 articulation and odontoid process. Impression: Moderate to early advanced multilevel degenerative changes as described above. No acute fracture / compression injury or subluxation. Signed by Shiraz Summers MD 03/08/2017 09:24 A
--- NOTE | 2017-03-08 09:35 | REP ---
Clinical: Back pain. Spondylosis. Technique: AP, lateral, bilateral oblique and coned-down views of the lumbosacral spine. Comparison: 04/29/2016. Findings: Alignment and lordosis maintained. No acute fracture / compression injury or subluxation. Moderate multilevel degenerative changes include marginal spurring, endplate sclerosis, hypertrophic facet changes. Findings are most pronounced at the L5-S1 level. Impression: Moderate multilevel degenerative changes essentially stable compared to 04/29/2016. No acute fracture / compression injury or subluxation. Signed by Shiraz Summers MD 03/08/2017 09:27 A
== END ==
LOC: M WUC 08:46
PROVIDERS: ATTEND Family Medicine
DX: M50.30 Other cervical disc degeneration, unspecified cervical region (principal); M47.816 Spondylosis without myelopathy or radiculopathy, lumbar region

== ENCOUNTER → 2017-06-14 | Outpatient (REF) | payer BC ==
[2017-06-14 13:30] LABS: BASO % 0.2 % (0.0-1.0); EOS # 0.1 10^3/uL (0.0-0.50); EOS % 2.1 % (0.0-3.0); IMMATURE GRANULOCYTE % 0.2 % (0-0); LYMPH # 1.7 10^3/uL (1.5-4.5); LYMPH % 35.2 % (24.0-44.0); MEAN CORPUSCULAR HEMOGLOBIN 28.6 pg (27.0-33.0); MEAN CORPUSCULAR HGB CONC 32.1 g/dl (32.0-36.5); MEAN CORPUSCULAR VOLUME 89.1 fl (80.0-96.0); MONO # 0.4 10^3/uL (0.0-0.8); MONO % 7.9 % (0.0-5.0); NEUTROPHILS # 2.6 10^3/uL (1.8-7.7); NEUTROPHILS % 54.4 % (36.0-66.0); PLATELET COUNT, AUTOMATED 205 10^3/uL (150-450); RED CELL DISTRIBUTION WIDTH 14.7 % (11.5-14.5); WHITE BLOOD COUNT 4.7 10^3/uL (4.0-10.0)
[2017-06-14 13:32] LABS: ADD MANUAL DIFFER NO; DIFF SLIDE NUMBER 152
[2017-06-18 08:09] LABS: FREE KAPPA LIGHT CHAINS URINE 1.31 mg/L (1.35-24.19); FREE LAMBDA LIGHT CHAINS URINE 0.09 mg/L (0.24-6.66)
== END ==
LOC: M LABWUC 12:59
PROVIDERS: ATTEND Family Medicine
DX: E11.9 Type 2 diabetes mellitus without complications (principal); D50.9 Iron deficiency anemia, unspecified; D47.2 Monoclonal gammopathy; E03.9 Hypothyroidism, unspecified; E53.8 Deficiency of other specified B group vitamins

== ENCOUNTER → 2017-07-17 | Outpatient (REF) | payer BC ==
[2017-07-17 13:51] LABS: VITAMIN B12 LEVEL 1012 PG/ML
[2017-07-17 13:52] LABS: FOLATE 8.4 NG/ML
[2017-07-17 13:57] LABS: CHOLESTEROL LEVEL 171 MG/DL (<200); TRIGLYCERIDES LEVEL 156 MG/DL (<150)
[2017-07-22 08:11] LABS: VITAMIN E LEVEL 9.8 mg/L (6.5-21.5)
== END ==
LOC: M LABNEURO 11:20
PROVIDERS: ATTEND Psychiatry & Neurology Neurology
DX: Z13.1 Encounter for screening for diabetes mellitus (principal); Z13.29 Encounter for screening for other suspected endocrine disorder

== ENCOUNTER → 2017-07-17 | Outpatient (CLI) | payer BC ==
[~2017-07-17] MED LIST changes: +PROHANCE 279.3MG/ML 15ML VIAL (A9576) As Ordered ONE
--- NOTE | 2017-07-17 17:06 | REP ---
Bilateral carotid artery duplex ultrasound: Peak flow velocity analysis: RIGHT LEFT ICA Peak flow velocity cm/sec 67 67 ICA Diastolic flow velocity cm/sec 22 23 ICA/CCA Ratio 0.87 0.83 ECA Peak flow velocity cm/sec 78 74 CCA Peak flow velocity cm/sec 77 79 The there is mild atheromatous plaque in the in the common carotid arteries and bulbs. This extends into the proximal internal carotid artery on the left. Peak flow velocities are normal bilaterally. The findings indicate less than 50% stenosis bilaterally. There is no significant narrowing on the right or the left. There is antegrade flow in the vertebral arteries bilaterally. Impression: There is no significant stenosis on the right or the left. Signed by Kory Choudhury MD 07/17/2017 04:58 P
--- NOTE | 2017-07-17 20:40 | REPUSA ---
MRI of the brain. Clinical history: headaches. Technique: Multiecho multiplanar MRI images of the brain were obtained before and after administratio n of 6 mL of Prohance intravenous gadolinium contrast. Comparison: 07/08/2017. Findings: The ventricles and sulci are symmetric bilaterally. The brain parenchyma demonstrates stable extensiv e periventricular and sub cortical T2 hyperintensity changes. There is no midline shift, mass effect, or extra-axial fluid collection. The midline intracranial structures do not demonstrate any gross ab normalities. The cervical cranial junction is intact. The orbits are unremarkable. The visualized par anasal sinuses and mastoid air cells are clear. The osseous structures and superficial soft tissues a re unremarkable. The vascular structures demonstrate appropriate flow voids. There are no abnormal en hancing lesions. The vascular structures enhance appropriately. Impression: 1. No evidence of acute infarct or hemorrhage. 2. No abnormal areas of enhancement. 3. Moderate chronic small vessel ischemic changes, grossly stable.
== END ==
LOC: M RAD 16:22
PROVIDERS: ATTEND Physician Assistant Medical
DX: I63.9 Cerebral infarction, unspecified (principal)
CPT/HCPCS: 70553; 93880; A9576

== ENCOUNTER → 2017-09-16 | Outpatient (CLI) | payer BC, MEDICARE ==
[2017-09-16 13:37] LABS: BASO % 0.2 % (0.0-1.0); EOS % 0.8 % (0.0-3.0); IMMATURE GRANULOCYTE % 0.4 % (0-0); LYMPH # 1.6 10^3/uL (1.5-4.5); LYMPH % 30.8 % (24.0-44.0); MEAN CORPUSCULAR HEMOGLOBIN 30.3 pg (27.0-33.0); MEAN CORPUSCULAR HGB CONC 33.3 g/dl (32.0-36.5); MEAN CORPUSCULAR VOLUME 90.9 fl (80.0-96.0); MONO # 0.3 10^3/uL (0.0-0.8); NEUTROPHILS # 3.3 10^3/uL (1.8-7.7); NEUTROPHILS % 61.8 % (36.0-66.0); PLATELET COUNT, AUTOMATED 236 10^3/uL (150-450); RED BLOOD COUNT 4.29 10^6/uL (4.00-5.40); RED CELL DISTRIBUTION WIDTH 12.9 % (11.5-14.5); WHITE BLOOD COUNT 5.3 10^3/uL (4.0-10.0)
[2017-09-16 13:43] LABS: APPEARANCE, URINE HAZY (CLEAR); BACTERIA, URINE AUTO NEGATIVE (NEGATIVE); BILIRUBIN, URINE AUTO NEGATIVE (NEGATIVE); BLOOD, URINE BLOOD NEGATIVE (NEGATIVE); CALCIUM OXALATE CRYSTALS SMALL; COLOR, URINE YELLOW (YELLOW); GLUCOSE, URINE (UA) AUTO NEGATIVE (NEGATIVE); KETONE, URINE AUTO NEGATIVE (NEGATIVE); LEUKOCYTE ESTERASE, URINE AUTO 1+ (NEGATIVE); NITRITE, URINE AUTO NEGATIVE (NEGATIVE); PROTEIN, URINE AUTO NEGATIVE (NEGATIVE); RBC, URINE AUTO 2 /HPF (0-3); SPECIFIC GRAVITY URINE AUTO 1.021 (1.002-1.035); SQUAMOUS EPITHELIAL CELL UR AU 0 /HPF (0-6); WBC, URINE AUTO 6 /HPF (0-3)
[2017-09-16 14:06] LABS: VITAMIN B12 LEVEL 514 PG/ML (247-911)
[2017-09-16 14:09] LABS: FERRITIN 19 NG/ML (8-252)
[2017-09-16 14:13] LABS: ESTIMATED AVERAGE GLUCOSE 157 MG/DL (60-110); HEMOGLOBIN A1c 7.1 %
[2017-09-16 14:43] LABS: MALB URINE SIEMENS 56.8 MG/L; MAU/CREAT RATIO 32.6 MCG/MG (0.0-30.0)
[2017-09-18 00:06] LABS: TISSUE TRANSGLUTAMINASE IgA <2 U/mL (0-3)
[2017-09-18 08:07] LABS: FREE KAPPA LIGHT CHAINS URINE 3.14 mg/L (1.35-24.19); FREE LAMBDA LIGHT CHAINS URINE 0.38 mg/L (0.24-6.66); KAPPA/LAMBDA RATIO URINE 8.26 (2.04-10.37)
== END ==
LOC: M WUC 09:58
DX: D47.2 Monoclonal gammopathy (principal); E78.2 Mixed hyperlipidemia; E11.9 Type 2 diabetes mellitus without complications; D50.9 Iron deficiency anemia, unspecified
CPT/HCPCS: 84443

== ENCOUNTER → 2017-10-05 | Outpatient (CLI) | payer MEDICARE, BC ==
[2017-10-05 18:00] LABS: ALBUMIN 4.4 GM/DL (3.2-5.2); ANION GAP 8 MEQ/L (8-16); BLOOD UREA NITROGEN 15 MG/DL (7-18); CALCIUM LEVEL 8.9 MG/DL (8.8-10.2); CARBON DIOXIDE LEVEL 29 MEQ/L (21-32); CHLORIDE LEVEL 106 MEQ/L (98-107); CREATININE FOR GFR 0.92 MG/DL (0.55-1.02); GLOMERULAR FILTRATION RATE > 60.0 (>39); GLUCOSE, FASTING 115 MG/DL (70-100); PHOSPHORUS LEVEL 2.8 MG/DL (2.5-4.9); POTASSIUM SERUM 4.8 MEQ/L (3.5-5.1); SODIUM LEVEL 143 MEQ/L (136-145)
== END ==
LOC: M WUC 09:21
DX: R51 Headache (principal)
CPT/HCPCS: 80069

== ENCOUNTER → 2017-11-03 | Outpatient (REF) | payer BC, MEDICARE ==
[2017-11-03 15:50] LABS: BASO % 0.3 % (0.0-1.0); EOS # 0.1 10^3/uL (0.0-0.50); EOS % 1.5 % (0.0-3.0); HEMATOCRIT 39.6 % (36.0-47.0); HEMOGLOBIN 13.1 g/dl (12.0-16.0); IMMATURE GRANULOCYTE % 0.7 % (0-3.0); LYMPH # 2.4 10^3/uL (1.5-4.5); LYMPH % 33.9 % (24.0-44.0); MEAN CORPUSCULAR HEMOGLOBIN 30.9 pg (27.0-33.0); MEAN CORPUSCULAR HGB CONC 33.1 g/dl (32.0-36.5); MEAN CORPUSCULAR VOLUME 93.4 fl (80.0-96.0); MONO # 0.6 10^3/uL (0.0-0.8); MONO % 8.6 % (0.0-5.0); NEUTROPHILS # 3.9 10^3/uL (1.8-7.7); PLATELET COUNT, AUTOMATED 215 10^3/uL (150-450); RED BLOOD COUNT 4.24 10^6/uL (4.00-5.40); RED CELL DISTRIBUTION WIDTH 13.1 % (11.5-14.5); WHITE BLOOD COUNT 7.1 10^3/uL (4.0-10.0)
[2017-11-03 16:09] LABS: ALBUMIN 3.6 GM/DL (3.2-5.2); ALKALINE PHOSPHATASE 44 U/L (45-117); ALT/SGPT 34 U/L (12-78); ANION GAP 8 MEQ/L (8-16); AST/SGOT 23 U/L (7-37); BILIRUBIN,TOTAL 0.3 MG/DL (0.2-1.0); BLOOD UREA NITROGEN 17 MG/DL (7-18); CALCIUM LEVEL 8.8 MG/DL (8.8-10.2); CARBON DIOXIDE LEVEL 29 MEQ/L (21-32); CHLORIDE LEVEL 107 MEQ/L (98-107); CREATININE FOR GFR 1.02 MG/DL (0.55-1.30); GLOMERULAR FILTRATION RATE 56.9 (>39); GLUCOSE, FASTING 97 MG/DL (70-100); POTASSIUM SERUM 4.7 MEQ/L (3.5-5.1); SODIUM LEVEL 144 MEQ/L (136-145)
== END ==
LOC: M SFHCPLAZ 13:46
DX: R51 Headache (principal)
CPT/HCPCS: 80164

== ENCOUNTER → 2017-12-18 | Outpatient (CLI) | payer MEDICARE | LOC: M WHC 13:20 | DX: Z12.31 Encounter for screening mammogram for malignant neoplasm of breast (principal); M85.80 Other specified disorders of bone density and structure, unspecified site; M81.0 Age-related osteoporosis without current pathological fracture | CPT/HCPCS: 77067 ==

== ENCOUNTER → 2017-12-28 | Outpatient (CLI) | payer MEDICARE ==
[2017-12-28 17:54] LABS: RETIC HEMOGLOBIN EQUIVALENT 35.8 pg (24-36); RETICULOCYTE # 54.9 10^9/L (17-77); RETICULOCYTE % 1.3 % (0.5-1.5)
[2017-12-28 18:28] LABS: ESTIMATED AVERAGE GLUCOSE 137 MG/DL (60-110); HEMOGLOBIN A1c 6.4 %
[2017-12-28 18:29] LABS: ALBUMIN 3.8 GM/DL (3.2-5.2); ALBUMIN/GLOBULIN RATIO 1.46 (1.00-1.93); ALKALINE PHOSPHATASE 40 U/L (45-117); ALT/SGPT 22 U/L (12-78); ANION GAP 5 MEQ/L (8-16); AST/SGOT 20 U/L (7-37); BILIRUBIN,TOTAL 0.4 MG/DL (0.2-1.0); BLOOD UREA NITROGEN 16 MG/DL (7-18); C REACTIVE PROTEIN QUANTITATIV < 0.30 MG/DL (0.00-0.30); CALCIUM LEVEL 8.4 MG/DL (8.8-10.2); CARBON DIOXIDE LEVEL 27 MEQ/L (21-32); CHLORIDE LEVEL 111 MEQ/L (98-107); CHOLESTEROL LEVEL 106 MG/DL (<200); CHOLESTEROL RISK RATIO 2.304 (<5); CPK CREATINE PHOSPHOKINASE 63 U/L (26-192); CREATININE FOR GFR 0.88 MG/DL (0.55-1.30); GLOMERULAR FILTRATION RATE > 60.0 (>39); GLUCOSE, FASTING 102 MG/DL (70-100); HDL CHOLESTEROL 46 MG/DL (>40); LDL CHOLESTEROL 44.2 MG/DL (<100); NON-HDL-C 60 MG/DL; SODIUM LEVEL 143 MEQ/L (136-145); TOTAL PROTEIN 6.4 GM/DL (6.4-8.2); TRIGLYCERIDES LEVEL 79 MG/DL (<150)
[2017-12-28 19:36] LABS: ERYTHROCYTE SEDIMENTATION RATE 4 mm/hr (0-30)
[2017-12-29 11:18] LABS: PTH INTACT 64.9 PG/ML (18.5-88.0); TOTAL 25(OH) VITAMIN D 45.7 NG/ML (30.0-100.0)
[2017-12-31 09:54] LABS: ALBUMIN % 63.8 % (55.8-66.1)
[2017-12-31 09:55] LABS: ALBUMIN 4.08 GM/DL (3.29-5.55); ALPHA-1-GLOBULIN % 3.9 % (2.9-4.9); ALPHA-1-GLOBULINS 0.25 GM/DL (0.17-0.41); ALPHA-2-GLOBULINS 0.76 GM/DL (0.42-0.99); ALPHA-2-GLOBULINS % 11.8 % (7.1-11.8); BETA-1-GLOBULINS 0.42 GM/DL (0.28-0.60); BETA-1-GLOBULINS % 6.6 % (4.7-7.2); BETA-2-GLOBULINS 0.27 GM/DL (0.19-0.55); BETA-2-GLOBULINS % 4.2 % (3.2-6.5); GAMMA GLOBULIN % 9.7 % (11.1-18.8); GAMMA GLOBULINS 0.62 GM/DL (0.65-1.58)
== END ==
LOC: M WUC 10:36
DX: E78.2 Mixed hyperlipidemia (principal); E55.9 Vitamin D deficiency, unspecified; D47.2 Monoclonal gammopathy; E11.9 Type 2 diabetes mellitus without complications; D50.9 Iron deficiency anemia, unspecified
CPT/HCPCS: 82550

== ENCOUNTER → 2018-01-22 | Outpatient (CLI) | payer MEDICARE ==
[2018-01-22 17:04] LABS: BASO % 0.3 % (0.0-1.0); EOS # 0.1 10^3/uL (0.0-0.50); EOS % 2.4 % (0.0-3.0); HEMATOCRIT 43.4 % (36.0-47.0); HEMOGLOBIN 14.2 g/dl (12.0-15.5); IMMATURE GRANULOCYTE % 0.2 % (0-3.0); LYMPH # 2.1 10^3/uL (1.5-4.5); LYMPH % 35.2 % (24.0-44.0); MEAN CORPUSCULAR HEMOGLOBIN 30.5 pg (27.0-33.0); MEAN CORPUSCULAR HGB CONC 32.7 g/dl (32.0-36.5); MEAN CORPUSCULAR VOLUME 93.3 fl (80.0-96.0); MONO # 0.5 10^3/uL (0.0-0.8); NEUTROPHILS # 3.1 10^3/uL (1.8-7.7); NEUTROPHILS % 52.9 % (36.0-66.0); PLATELET COUNT, AUTOMATED 225 10^3/uL (150-450); RED BLOOD COUNT 4.65 10^6/uL (4.00-5.40); RED CELL DISTRIBUTION WIDTH 12.5 % (11.5-14.5); WHITE BLOOD COUNT 5.9 10^3/uL (4.0-10.0)
[2018-01-22 17:25] LABS: ALBUMIN 4.1 GM/DL (3.2-5.2); ALBUMIN/GLOBULIN RATIO 1.37 (1.00-1.93); ALKALINE PHOSPHATASE 49 U/L (45-117); ALT/SGPT 34 U/L (12-78); ANION GAP 8 MEQ/L (8-16); AST/SGOT 26 U/L (7-37); BILIRUBIN,TOTAL 0.5 MG/DL (0.2-1.0); BLOOD UREA NITROGEN 16 MG/DL (7-18); CARBON DIOXIDE LEVEL 25 MEQ/L (21-32); CHLORIDE LEVEL 107 MEQ/L (98-107); CREATININE FOR GFR 1.06 MG/DL (0.55-1.30); GLOMERULAR FILTRATION RATE 54.2 (>39); GLUCOSE, FASTING 105 MG/DL (70-100); SODIUM LEVEL 140 MEQ/L (136-145); TOTAL PROTEIN 7.1 GM/DL (6.4-8.2)
== END ==
LOC: M WUC 11:48
DX: R31.9 Hematuria, unspecified (principal); R10.30 Lower abdominal pain, unspecified
CPT/HCPCS: 80053

== ENCOUNTER → 2018-03-10 | Outpatient (REF) | payer MEDICARE ==
[2018-03-10 13:32] LABS: EOS # 0.2 10^3/uL (0.0-0.50); EOS % 3.9 % (0.0-3.0); HEMATOCRIT 39.6 % (36.0-47.0); HEMOGLOBIN 12.9 g/dl (12.0-15.5); IMMATURE GRANULOCYTE % 0.5 % (0-3.0); LYMPH # 1.8 10^3/uL (1.5-4.5); LYMPH % 40.4 % (24.0-44.0); MEAN CORPUSCULAR HEMOGLOBIN 31.1 pg (27.0-33.0); MEAN CORPUSCULAR HGB CONC 32.6 g/dl (32.0-36.5); MEAN CORPUSCULAR VOLUME 95.4 fl (80.0-96.0); MONO # 0.4 10^3/uL (0.0-0.8); NEUTROPHILS % 46.2 % (36.0-66.0); PLATELET COUNT, AUTOMATED 194 10^3/uL (150-450); RED BLOOD COUNT 4.15 10^6/uL (4.00-5.40); RED CELL DISTRIBUTION WIDTH 12.4 % (11.5-14.5); RETIC HEMOGLOBIN EQUIVALENT 35.7 pg (24-36); RETICULOCYTE # 63.5 10^9/L (17-77); RETICULOCYTE % 1.5 % (0.5-1.5); WHITE BLOOD COUNT 4.3 10^3/uL (4.0-10.0)
[2018-03-10 13:44] LABS: ALBUMIN 3.6 GM/DL (3.2-5.2); ALBUMIN/GLOBULIN RATIO 1.24 (1.00-1.93); ALKALINE PHOSPHATASE 44 U/L (45-117); ALT/SGPT 22 U/L (12-78); ANION GAP 8 MEQ/L (8-16); AST/SGOT 14 U/L (7-37); BILIRUBIN,TOTAL 0.4 MG/DL (0.2-1.0); BLOOD UREA NITROGEN 8 MG/DL (7-18); CALCIUM LEVEL 9.1 MG/DL (8.8-10.2); CARBON DIOXIDE LEVEL 28 MEQ/L (21-32); CHLORIDE LEVEL 109 MEQ/L (98-107); CREATININE FOR GFR 0.97 MG/DL (0.55-1.30); GLOMERULAR FILTRATION RATE > 60.0 (>39); GLUCOSE, FASTING 87 MG/DL (70-100); SODIUM LEVEL 145 MEQ/L (136-145); TOTAL PROTEIN 6.5 GM/DL (6.4-8.2); VALPROIC ACID (DEPAKOTE) 55.3 UG/ML (50.0-100.0)
[2018-03-10 13:46] LABS: ESTIMATED AVERAGE GLUCOSE 111 MG/DL (60-110); HEMOGLOBIN A1c 5.5 %
== END ==
LOC: M SFHCPLAZ 10:13
DX: D50.9 Iron deficiency anemia, unspecified (principal); E03.9 Hypothyroidism, unspecified; E11.9 Type 2 diabetes mellitus without complications; R51 Headache
CPT/HCPCS: 83735

== ENCOUNTER → 2018-07-22 | Outpatient (CLI) | payer MEDICARE | LOC: M RAD 14:09 | DX: S09.90XA Unspecified injury of head, initial encounter (principal); X58.XXXA Exposure to other specified factors, initial encounter; Y92.89 Other specified places as the place of occurrence of the external cause | CPT/HCPCS: 70450 ==

== ENCOUNTER 2018-08-14 13:01 | Emergency (ER) | payer MEDICARE ==
[2018-08-14] MEDS: ACETAMINOPHEN 325 MG TAB PO (13:23)
== END 2018-08-14 14:12 | disposition home or self-care (01) ==
LOC: M ED 13:01
DX: M25.512 Pain in left shoulder (principal); I10 Essential (primary) hypertension
CPT/HCPCS: 73030

== ENCOUNTER → 2018-12-14 | Outpatient (CLI) | payer MEDICARE ==
[~2018-12-14] MED LIST changes: +ACE65ERTAB PO; -ASPI1TAB PO; +ASPI81TA26 PO; +DIVA500T94; -GABA-283 PO; +GABA-845 PO; +MECL12.575; -PROHANCE 279.3MG/ML 15ML VIAL (A9576) As Ordered ONE; +PROP10TA56 PO; +RAMI1CAP22 PO; -RAMI25CA PO; +SUCR1TAB56 PO; +TOPI50TA9; +VITA100018 PO; -VITA100072 PO
[2018-12-14 12:27] LABS: BASO % 0.2 % (0.0-1.0); EOS # 0.2 10^3/uL (0.0-0.50); EOS % 3.1 % (0.0-3.0); HEMATOCRIT 40.7 % (36.0-47.0); HEMOGLOBIN 12.9 g/dl (12.0-15.5); LYMPH # 1.8 10^3/uL (1.5-4.5); LYMPH % 37.8 % (24.0-44.0); MEAN CORPUSCULAR HEMOGLOBIN 31.9 pg (27.0-33.0); MEAN CORPUSCULAR HGB CONC 31.7 g/dl (32.0-36.5); MEAN CORPUSCULAR VOLUME 100.5 fl (80.0-96.0); MONO # 0.4 10^3/uL (0.0-0.8); MONO % 8.6 % (0.0-5.0); NEUTROPHILS # 2.4 10^3/uL (1.8-7.7); NEUTROPHILS % 50.1 % (36.0-66.0); PLATELET COUNT, AUTOMATED 183 10^3/uL (150-450); RED BLOOD COUNT 4.05 10^6/uL (4.00-5.40); WHITE BLOOD COUNT 4.8 10^3/uL (4.0-10.0)
[2018-12-14 12:29] LABS: HEMATOCRIT 40.7 % (36.0-47.0)
[2018-12-14 12:36] LABS: ALBUMIN 3.7 GM/DL (3.2-5.2); ALT/SGPT 21 U/L (12-78); BILIRUBIN,TOTAL 0.3 MG/DL (0.2-1.0); BLOOD UREA NITROGEN 26 MG/DL (7-18); C REACTIVE PROTEIN QUANTITATIV < 0.30 MG/DL (0.00-0.30); CALCIUM LEVEL 9.1 MG/DL (8.8-10.2); CARBON DIOXIDE LEVEL 28 MEQ/L (21-32); CHLORIDE LEVEL 107 MEQ/L (98-107); CHOLESTEROL LEVEL 158 MG/DL (<200); CHOLESTEROL RISK RATIO 2.289 (<5); CPK CREATINE PHOSPHOKINASE 57 U/L (26-192); CREATININE FOR GFR 1.36 MG/DL (0.55-1.30); GLOMERULAR FILTRATION RATE 40.6 (>39); GLUCOSE, FASTING 98 MG/DL (70-100); HDL CHOLESTEROL 69 MG/DL (>40); LDL CHOLESTEROL 65 MG/DL (<100); NON-HDL-C 89 MG/DL; SODIUM LEVEL 140 MEQ/L (136-145); TOTAL PROTEIN 6.3 GM/DL (6.4-8.2); TRIGLYCERIDES LEVEL 118 MG/DL (<150)
[2018-12-14 12:41] LABS: VITAMIN B12 LEVEL 367 PG/ML (247-911)
[2018-12-14 13:47] LABS: TOTAL 25(OH) VITAMIN D 53.9 NG/ML (30.0-100.0)
== END ==
LOC: M WUC 08:38
PROVIDERS: ATTEND Family Medicine
DX: E53.8 Deficiency of other specified B group vitamins (principal); E78.2 Mixed hyperlipidemia; E55.9 Vitamin D deficiency, unspecified

== ENCOUNTER → 2018-12-17 | Outpatient (REF) | payer MEDICARE ==
[2018-12-17 12:42] LABS: APPEARANCE, URINE CLEAR (CLEAR); BACTERIA, URINE AUTO NEGATIVE (NEGATIVE); BILIRUBIN, URINE AUTO NEGATIVE (NEGATIVE); BLOOD, URINE BLOOD NEGATIVE (NEGATIVE); COLOR, URINE YELLOW (YELLOW); GLUCOSE, URINE (UA) AUTO NEGATIVE (NEGATIVE); KETONE, URINE AUTO NEGATIVE (NEGATIVE); LEUKOCYTE ESTERASE, URINE AUTO 1+ (NEGATIVE); NITRITE, URINE AUTO NEGATIVE (NEGATIVE); PROTEIN, URINE AUTO NEGATIVE (NEGATIVE); RBC, URINE AUTO 4 /HPF (0-3); SPECIFIC GRAVITY URINE AUTO 1.016 (1.002-1.035); SQUAMOUS EPITHELIAL CELL UR AU 0 /HPF (0-6); WBC, URINE AUTO 19 /HPF (0-3)
[2018-12-17 13:11] LABS: ALBUMIN 3.8 GM/DL (3.2-5.2); CALCIUM LEVEL 9.5 MG/DL (8.8-10.2); CREATININE FOR GFR 1.33 MG/DL (0.55-1.30); GLOMERULAR FILTRATION RATE 41.6 (>39); PHOSPHORUS LEVEL 3.6 MG/DL (2.5-4.9); POTASSIUM SERUM 4.4 MEQ/L (3.5-5.1)
== END ==
LOC: M SFHCPLAZ 09:53
PROVIDERS: ATTEND Family Medicine
DX: N18.3 Chronic kidney disease, stage 3 (moderate) (principal); G31.84 Mild cognitive impairment of uncertain or unknown etiology; M75.42 Impingement syndrome of left shoulder; M50.30 Other cervical disc degeneration, unspecified cervical region; R51 Headache; K59.09 Other constipation; G25.0 Essential tremor; I12.9 Hypertensive chronic kidney disease with stage 1 through stage 4 chronic kidney disease, or unspecified chronic kidney disease; D47.2 Monoclonal gammopathy; M85.80 Other specified disorders of bone density and structure, unspecified site; D50.9 Iron deficiency anemia, unspecified; M47.816 Spondylosis without myelopathy or radiculopathy, lumbar region; E11.9 Type 2 diabetes mellitus without complications; K21.9 Gastro-esophageal reflux disease without esophagitis; Z12.11 Encounter for screening for malignant neoplasm of colon; E78.2 Mixed hyperlipidemia; E03.9 Hypothyroidism, unspecified; E55.9 Vitamin D deficiency, unspecified; E53.8 Deficiency of other specified B group vitamins
CPT/HCPCS: 36415; 80069; 81001; 87086; G0463

== ENCOUNTER → 2018-12-25 | Outpatient (CLI) | payer MEDICARE ==
--- NOTE | 2018-12-25 09:07 | REP ---
Renal vascular ultrasound: Right Kidney: The right kidney measures 12.2 cm length. Extraparenchymal renal artery. Peak renal artery flow velocity the 111 cm/ sec Peak aortic velocity: 87.5 cm/sec Renal/aortic ratio: 1.3 Intraparenchymal renal arteries. Resistive index: upper pole 0.8 mid pole 0.8 lower pole 0.8 Acceleration time: upper pole 0.03 mid pole 0.03 lower pole 0.03 Left kidney: The left kidney measures 10.6 cm length. Extraparenchymal renal artery: Peak renal artery flow velocity: The the 86.3 cm/sec. Peak aortic velocity: 87.5 cm/sec Renal/aortic ratio: 1.0 Intraparenchymal renal arteries: Resistive index: Upper pole 0.7 mid pole 0.8 lower pole 0.8 Acceleration time: Upper pole 0.03 mid pole 0.05 lower pole 0.03 Impression: There is no evidence of renal artery stenosis by Doppler ultrasound. The resistive indices are elevated bilaterally, this is compatible with chronic renal disease. Bilateral renal ultrasound: The right kidney measures 12.2 x 5.45 x 1 cm. Left kidney measures 10.6 x 6.3 x 5.7 cm. The right kidney is normal size. Left kidney is in the low normal size range. Renal cortical echogenicity is normal bilaterally. The There is moderate right hydronephrosis. There is no left hydronephrosis. There is no right renal calculus, solid mass or cyst. There is no left renal solid mass. There is a left renal upper pole calculus measuring 1.3 cm. There is a left renal lower pole calculus measuring 0.8 cm. There is a left renal lower pole simple cyst measuring 1.8 x 1.3 x 1.9 cm. Bladder ultrasound: The bladder is mildly distended and cannot be further assessed. With color Doppler assessment there is a left ureteral jet. No right ureteral jet is identified. The the Impression: Right hydronephrosis. There is no right ureteral jet into the bladder. Left renal calculi and left renal cyst. Electronically Signed by Kory Choudhury MD 12/25/2018 08:58 A
== END ==
LOC: M RAD 07:10
PROVIDERS: ATTEND Family Medicine
DX: N18.3 Chronic kidney disease, stage 3 (moderate) (principal)

== ENCOUNTER → 2018-12-29 | Outpatient (CLI) | payer MEDICARE ==
--- NOTE | 2018-12-29 15:37 | REPMRS ---
Patient History The patient states she had a clinical breast exam in 12/2018. Family history of breast cancer at age 70 in sister. Benign radio exam breast specimen of the left breast, October 18, 2013. Benign stereotatic loc for ea lesion of the left breast, October 18, 2013. 3D TOMOSYNTHESIS WAS PERFORMED. Digital Woman Screen Mammo: December 29, 2018 - Exam #: [id number] Bilateral CC and MLO view(s) were taken. Technologist: Yolanda Sanders, Technologist Prior study comparison: December 18, 2017, digital woman screen mammo performed at [facility]. December 06, 2016, digital woman screen mammo performed at [facility]. FINDINGS: There are scattered fibroglandular densities. There has been no change in the appearance of the mammogram from the prior studies. There is a mild amount of residual fibroglandular tissue which is fairly symmetric. There is no interval development of dominant mass, architectural distortion, or clustered microcalcification suggestive of malignancy. Assessment: BI-RADS/ACR category 1 mammogram. Negative Mammogram. Recommendation Routine screening mammogram in 1 year (for women over age 40). This mammogram was interpreted with the aid of an FDA-approved computer-aided dectection system. Electronically Signed By: Kory Goyal MD 12/29/18 [id number]
== END ==
LOC: M WHC 13:59
PROVIDERS: ATTEND Nurse Practitioner Women's Health
DX: Z01.419 Encounter for gynecological examination (general) (routine) without abnormal findings (principal); Z12.31 Encounter for screening mammogram for malignant neoplasm of breast; Z86.018 Personal history of other benign neoplasm; Z80.3 Family history of malignant neoplasm of breast
CPT/HCPCS: 77063; 77067; G0101

== ENCOUNTER → 2019-03-27 | Outpatient (CLI) | payer MEDICARE ==
[2019-03-27 09:27] LABS: BASO % 0.3 % (0.0-1.0); EOS # 0.1 10^3/uL (0.0-0.50); EOS % 3.1 % (0.0-3.0); HEMATOCRIT 38.3 % (36.0-47.0); HEMOGLOBIN 12.2 g/dl (12.0-15.5); LYMPH # 1.6 10^3/uL (1.5-4.5); LYMPH % 40.7 % (24.0-44.0); MEAN CORPUSCULAR HEMOGLOBIN 31.4 pg (27.0-33.0); MEAN CORPUSCULAR HGB CONC 31.9 g/dl (32.0-36.5); MEAN CORPUSCULAR VOLUME 98.5 fl (80.0-96.0); MONO # 0.3 10^3/uL (0.0-0.8); NEUTROPHILS # 1.8 10^3/uL (1.8-7.7); NEUTROPHILS % 47.4 % (36.0-66.0); PLATELET COUNT, AUTOMATED 167 10^3/uL (150-450); RED BLOOD COUNT 3.89 10^6/uL (4.00-5.40); WHITE BLOOD COUNT 3.9 10^3/uL (4.0-10.0)
[2019-03-27 09:30] LABS: APPEARANCE, URINE CLEAR (CLEAR); BACTERIA, URINE AUTO NEGATIVE (NEGATIVE); BILIRUBIN, URINE AUTO NEGATIVE (NEGATIVE); BLOOD, URINE BLOOD NEGATIVE (NEGATIVE); COLOR, URINE YELLOW (YELLOW); GLUCOSE, URINE (UA) AUTO NEGATIVE (NEGATIVE); KETONE, URINE AUTO NEGATIVE (NEGATIVE); LEUKOCYTE ESTERASE, URINE AUTO 1+ (NEGATIVE); MUCUS, URINE SMALL (NEGATIVE); NITRITE, URINE AUTO NEGATIVE (NEGATIVE); PROTEIN, URINE AUTO NEGATIVE (NEGATIVE); RBC, URINE AUTO 2 /HPF (0-3); SPECIFIC GRAVITY URINE AUTO 1.016 (1.002-1.035); SQUAMOUS EPITHELIAL CELL UR AU 1 /HPF (0-6); WBC, URINE AUTO 7 /HPF (0-3)
[2019-03-27 09:55] LABS: ALBUMIN 3.8 GM/DL (3.2-5.2); CALCIUM LEVEL 8.7 MG/DL (8.8-10.2); CREATININE FOR GFR 1.19 MG/DL (0.55-1.30); FREE T4 1.17 NG/DL (0.76-1.46); GLOMERULAR FILTRATION RATE 47.3 (>39); MAGNESIUM LEVEL 2.1 MG/DL (1.8-2.4); PHOSPHORUS LEVEL 3.2 MG/DL (2.5-4.9); POTASSIUM SERUM 4.4 MEQ/L (3.5-5.1); THYROID STIMULATING HORMONE 3.29 uIU/ML (0.358-3.740)
[2019-03-27 10:05] LABS: MALB URINE SIEMENS 18.7 MG/L; MAU/CREAT RATIO 14.8 MCG/MG (0.0-30.0)
[2019-03-27 10:46] LABS: HEMOGLOBIN A1c 6.1 %
[2019-03-30 14:41] LABS: FREE KAPPA LIGHT CHAINS SERUM 28.6 mg/L (3.3-19.4); FREE KAPPA LIGHT CHAINS URINE 15.7 mg/L (1.35-24.19); FREE LAMBDA LIGHT CHAINS SERUM 21.6 mg/L (5.7-26.3); FREE LAMBDA LIGHT CHAINS URINE 1.68 mg/L (0.24-6.66); KAPPA/LAMBDA RATIO SERUM 1.32 (0.26-1.65); KAPPA/LAMBDA RATIO URINE 9.35 (2.04-10.37)
== END ==
LOC: M WUC 08:17
PROVIDERS: ATTEND Family Medicine
DX: N18.3 Chronic kidney disease, stage 3 (moderate) (principal); E11.9 Type 2 diabetes mellitus without complications; D47.2 Monoclonal gammopathy; E03.9 Hypothyroidism, unspecified

== ENCOUNTER → 2019-04-06 | Outpatient (CLI) | payer MEDICARE ==
--- NOTE | 2019-04-06 15:03 | REP ---
Clinical: Chronic medical renal disease with history of nephrolithiasis. Technique: Real time lopez scale ultrasound examination using curved array transducer. Comparison: 12/25/2018. Findings: The right kidney is normal in reniform shape, size, echogenicity without hydronephrosis, nephrolithiasis, cystic or renal mass lesion and measures 11.0 x 4.0 x 4.0 cm. The left kidney measures 10.5 x 4.9 x 5.5 cm and is normal in reniform shape and echogenicity without hydronephrosis, cystic or renal mass lesion. Few scattered nonobstructing calculi are suspected measuring up to 6 mm. The bladder is grossly unremarkable. Impression: 1. Normal right kidney. 2. Left kidney with multiple suspected nephroliths up to 6 mm. Electronically Signed by Shiraz Summers MD 04/06/2019 02:55 P
== END ==
LOC: M RAD 13:02
PROVIDERS: ATTEND Family Medicine
DX: N18.3 Chronic kidney disease, stage 3 (moderate) (principal)

== ENCOUNTER 2019-04-14 14:49 | Outpatient (CLI) | payer MEDICARE ==
[~2019-04-14] VITALS: Ht 160 cm; Wt 60.9 kg
[~2019-04-14 14:49] MED LIST changes: -TOPI50TA9; +TOPI50TA9 PO; +ZOLEDRONIC ACID 5 MG in APPROPRIATE DILUENT 1 EA IV ONE
[2019-04-14 14:55] VITALS: BP 137/63
[2019-04-14 15:40] VITALS: BP 138/63
[2019-04-14 15:57] VITALS: BP 128/63
== END 2019-04-14 16:00 | disposition home or self-care (01) ==
LOC: M INFU 14:49
PROVIDERS: ATTEND Family Medicine
DX: M85.80 Other specified disorders of bone density and structure, unspecified site (principal)
CPT/HCPCS: 96365; J3489

== ENCOUNTER → 2019-09-14 | Outpatient (CLI) | payer MEDICARE ==
[~2019-09-14] MED LIST changes: -METF750T PO; +METF750T36 PO; -ZOLEDRONIC ACID 5 MG in APPROPRIATE DILUENT 1 EA IV ONE
[2019-09-14 13:26] LABS: BASO % 0.2 % (0.0-1.0); EOS # 0.1 10^3/uL (0.0-0.5); EOS % 1.5 % (0.0-3.0); HEMATOCRIT 39.9 % (36.0-47.0); HEMOGLOBIN 12.6 g/dl (12.0-15.5); LYMPH # 1.5 10^3/uL (1.5-5.0); LYMPH % 33.5 % (24.0-44.0); MEAN CORPUSCULAR HEMOGLOBIN 30.1 pg (27.0-33.0); MEAN CORPUSCULAR HGB CONC 31.6 g/dl (32.0-36.5); MEAN CORPUSCULAR VOLUME 95.2 fl (80.0-96.0); MONO # 0.4 10^3/uL (0.0-0.8); MONO % 8.9 % (0.0-5.0); NEUTROPHILS # 2.6 10^3/uL (1.5-8.5); NEUTROPHILS % 55.7 % (36.0-66.0); PLATELET COUNT, AUTOMATED 163 10^3/uL (150-450); RED BLOOD COUNT 4.19 10^6/uL (4.00-5.40); WHITE BLOOD COUNT 4.6 10^3/uL (4.0-10.0)
[2019-09-14 13:56] LABS: ALBUMIN 3.9 GM/DL (3.2-5.2); BILIRUBIN,TOTAL 0.4 MG/DL (0.2-1.0); CREATININE FOR GFR 1.19 MG/DL (0.55-1.30); FREE T4 1.41 NG/DL (0.76-1.46); GLOMERULAR FILTRATION RATE 47.3 (>39); POTASSIUM SERUM 3.9 MEQ/L (3.5-5.1); THYROID STIMULATING HORMONE 4.02 uIU/ML (0.358-3.740); TOTAL PROTEIN 6.6 GM/DL (6.4-8.2)
[2019-09-17 00:07] LABS: FREE KAPPA LIGHT CHAINS SERUM 24.6 mg/L (3.3-19.4); KAPPA/LAMBDA RATIO SERUM 1.07 (0.26-1.65)
== END ==
LOC: M WUC 08:53
PROVIDERS: ATTEND Family Medicine
DX: D50.9 Iron deficiency anemia, unspecified (principal); D47.2 Monoclonal gammopathy; E03.9 Hypothyroidism, unspecified; E53.8 Deficiency of other specified B group vitamins

== ENCOUNTER → 2019-10-12 | Outpatient (CLI) | payer MEDICARE ==
[~2019-10-12] MED LIST changes: -MECL12.575; +MECL12.589
--- NOTE | 2019-10-12 11:45 | REP ---
PA and lateral chest: Comparison is 10/03/2016. The lung segura are clear. The cardiac size is normal. The ahnane, mediastinum, and skeletal structures are unremarkable. Impression: Negative PA and lateral chest. Electronically Signed by Kory Choudhury MD 10/12/2019 11:36 A
[2019-10-12 13:07] LABS: EOS # 0.1 10^3/uL (0.0-0.5); EOS % 0.7 % (0.0-3.0); HEMOGLOBIN 12.2 g/dl (12.0-15.5); LYMPH # 1.6 10^3/uL (1.5-5.0); LYMPH % 23.4 % (24.0-44.0); MEAN CORPUSCULAR HEMOGLOBIN 29.9 pg (27.0-33.0); MEAN CORPUSCULAR HGB CONC 31.3 g/dl (32.0-36.5); MEAN CORPUSCULAR VOLUME 95.6 fl (80.0-96.0); MONO # 0.7 10^3/uL (0.0-0.8); MONO % 10.5 % (0.0-5.0); NEUTROPHILS # 4.5 10^3/uL (1.5-8.5); NEUTROPHILS % 65.1 % (36.0-66.0); PLATELET COUNT, AUTOMATED 172 10^3/uL (150-450); RED BLOOD COUNT 4.08 10^6/uL (4.00-5.40)
[2019-10-12 13:51] LABS: CALCIUM LEVEL 9.2 MG/DL (8.8-10.2); CREATININE FOR GFR 1.31 MG/DL (0.55-1.30); GLOMERULAR FILTRATION RATE 42.4 (>39)
== END ==
LOC: M WUC 10:55
PROVIDERS: ATTEND Physician Assistant
DX: J20.9 Acute bronchitis, unspecified (principal)

== ENCOUNTER → 2019-10-14 | Outpatient (REF) | payer MEDICARE | LOC: M SFHCPLAZ 12:49 | PROVIDERS: ATTEND Family Medicine | DX: R05 Cough (principal) | CPT/HCPCS: 87486; 87581; 87633; 87798; 96372; G0463; J1040 ==

== ENCOUNTER → 2019-12-07 | Outpatient (REF) | payer MEDICARE ==
[2019-12-07 13:48] LABS: BASO % 0.2 % (0.0-1.0); EOS # 0.1 10^3/uL (0.0-0.5); EOS % 1.9 % (0.0-3.0); HEMOGLOBIN 13.3 g/dl (12.0-15.5); LYMPH # 2.1 10^3/uL (1.5-5.0); LYMPH % 44.4 % (24.0-44.0); MEAN CORPUSCULAR HEMOGLOBIN 30.9 pg (27.0-33.0); MEAN CORPUSCULAR HGB CONC 32.4 g/dl (32.0-36.5); MEAN CORPUSCULAR VOLUME 95.1 fl (80.0-96.0); MONO # 0.5 10^3/uL (0.0-0.8); MONO % 9.6 % (0.0-5.0); NEUTROPHILS % 43.3 % (36.0-66.0); PLATELET COUNT, AUTOMATED 194 10^3/uL (150-450); RED BLOOD COUNT 4.31 10^6/uL (4.00-5.40); WHITE BLOOD COUNT 4.7 10^3/uL (4.0-10.0)
[2019-12-07 13:54] LABS: APPEARANCE, URINE HAZY (CLEAR); BACTERIA, URINE AUTO NEGATIVE (NEGATIVE); BILIRUBIN, URINE AUTO NEGATIVE (NEGATIVE); BLOOD, URINE BLOOD NEGATIVE (NEGATIVE); CALCIUM OXALATE CRYSTALS LARGE; COLOR, URINE YELLOW (YELLOW); GLUCOSE, URINE (UA) AUTO NEGATIVE (NEGATIVE); KETONE, URINE AUTO NEGATIVE (NEGATIVE); LEUKOCYTE ESTERASE, URINE AUTO NEGATIVE (NEGATIVE); NITRITE, URINE AUTO NEGATIVE (NEGATIVE); PROTEIN, URINE AUTO NEGATIVE (NEGATIVE); RBC, URINE AUTO 2 /HPF (0-3); SPECIFIC GRAVITY URINE AUTO 1.016 (1.002-1.035); SQUAMOUS EPITHELIAL CELL UR AU 0 /HPF (0-6); UROBILINOGEN, URINE AUTO 0.2 mg/dL (0.0-2.0); WBC, URINE AUTO 2 /HPF (0-3)
[2019-12-07 14:07] LABS: HEMOGLOBIN A1c 6.9 %
[2019-12-07 14:21] LABS: MALB URINE SIEMENS 11.8 MG/L; MAU/CREAT RATIO 10.4 MCG/MG (0.0-30.0)
[2019-12-07 14:40] LABS: CHOLESTEROL RISK RATIO 2.477 (<5); FREE T4 1.14 NG/DL (0.76-1.46); THYROID STIMULATING HORMONE 10.1 uIU/ML (0.358-3.740); URIC ACID 5.7 MG/DL (2.6-6.0)
== END ==
LOC: M SFHCPLAZ 08:51
PROVIDERS: ATTEND Family Medicine
DX: D47.2 Monoclonal gammopathy (principal); E53.8 Deficiency of other specified B group vitamins; E11.9 Type 2 diabetes mellitus without complications; E78.2 Mixed hyperlipidemia

== ENCOUNTER → 2020-01-04 | Outpatient (CLI) | payer MEDICARE ==
--- NOTE | 2020-01-04 11:47 | REPMRS ---
Patient History The patient states she had a clinical breast exam in December 2019. Family history of breast cancer at age 70 in sister. Benign radio exam breast specimen of the left breast, October 18, 2013. Benign stereotatic loc for ea lesion of the left breast, October 18, 2013. Digital Woman Screen Mammo: January 04, 2020 - Exam #: [id number] Bilateral CC and MLO view(s) were taken. Technologist: Tanya Hung Technologist Prior study comparison: December 29, 2018, bilateral digital woman screen mammo performed at [facility]. December 18, 2017, digital woman screen mammo performed at [facility]. December 06, 2016, digital woman screen mammo performed at [facility]. FINDINGS: There are scattered fibroglandular densities. There is a needle biopsy marker clip again noted in the left breast. There are multiple stable areas of calcification. There has been no change in the appearance of the mammogram from the prior studies. There is a mild amount of scattered fibroglandular density which is fairly symmetric. There is no interval development of dominant mass, architectural distortion, or grouped microcalcification suggestive of malignancy. 3-D tomosynthesis shows no additional findings. Assessment: BI-RADS/ACR category 2 mammogram. Benign Findings. Recommendation Routine screening mammogram of both breasts in 1 year (for women over age 40). This patient's Lifetime Breast Cancer Risk is estimated at 5.8 %. This mammogram was interpreted with the aid of an FDA-approved computer-aided dectection system. Electronically Signed By: Uziel Felix MD 01/04/20 0629
--- NOTE | 2020-01-10 13:35 | DEXA ---
AP SPINE L2- L4 1.129 -0.7 1.0 LT FEMUR TOTAL 0.951 -0.4 1.2 LT NECK 0.856 -1.3 0.6 RT FEMUR TOTAL 0.732 -2.2 -0.5 RT NECK 0.698 -2.4 -0.6 TOTAL BODY TOTAL OTHER COMMENTS: Normal bone densitometry of the spine. There is low bone density of the hips. The density of the spine has increased 18.2% since the initial exam on 11/01/2003. The increased 4.2% since the most recent exam on 12/18/2017. The density of the left hip has decreased -5.1% since initial exam on 11/01/2003. The density of the left hip has decreased 1.0% since the most recent exam on 12/18/2017. The density of the right hip has decreased -2.0% since the initial exam on 11/01/2003. The density of the right hip has decreased -4.1% since the most recent exam on 12/18/2017. FOLLOW-UP: Recommendation for the next bone density exam: 2 years. SVITLANA
== END ==
LOC: M WHC 10:20
PROVIDERS: ATTEND Family Medicine
DX: Z12.31 Encounter for screening mammogram for malignant neoplasm of breast (principal); Z78.0 Asymptomatic menopausal state; M85.80 Other specified disorders of bone density and structure, unspecified site; R92.1 Mammographic calcification found on diagnostic imaging of breast; Z80.3 Family history of malignant neoplasm of breast; Z86.018 Personal history of other benign neoplasm
CPT/HCPCS: 77063; 77067; 77080; G0463

== ENCOUNTER → 2020-04-19 | Outpatient (REF) | payer MEDICARE ==
[~2020-04-19] MED LIST changes: +SITA50TAB PO
[2020-05-21 11:56] LABS: FREE KAPPA LIGHT CHAINS SERUM SEE SEPARATE REPORT; FREE LAMBDA LIGHT CHAINS SERUM SEE SEPARATE REPORT
[2020-05-21 11:57] LABS: INSULIN LEVEL See Separate Report
[2020-05-22 11:00] LABS: BASO % 0.2 % (0.0-1.0); EOS # 0.1 10^3/uL (0.0-0.5); EOS % 1.7 % (0.0-3.0); HEMATOCRIT 41.1 % (36.0-47.0); HEMOGLOBIN 13.1 g/dl (12.0-15.5); LYMPH # 1.5 10^3/uL (1.5-5.0); LYMPH % 31.6 % (24.0-44.0); MEAN CORPUSCULAR HGB CONC 31.9 g/dl (32.0-36.5); MEAN CORPUSCULAR VOLUME 94.1 fl (80.0-96.0); MONO # 0.4 10^3/uL (0.0-0.8); MONO % 8.5 % (0.0-5.0); NEUTROPHILS # 2.6 10^3/uL (1.5-8.5); NEUTROPHILS % 57.6 % (36.0-66.0); PLATELET COUNT, AUTOMATED 193 10^3/uL (150-450); RED BLOOD COUNT 4.37 10^6/uL (4.00-5.40); WHITE BLOOD COUNT 4.6 10^3/uL (4.0-10.0)
[2020-06-04 10:04] LABS: ALBUMIN 3.8 GM/DL (3.2-5.2); ALT/SGPT 18 U/L (12-78); BILIRUBIN,TOTAL 0.5 MG/DL (0.2-1.0); BLOOD UREA NITROGEN 19 MG/DL (7-18); CALCIUM LEVEL 8.8 MG/DL (8.8-10.2); CARBON DIOXIDE LEVEL 29 MEQ/L (21-32); CHLORIDE LEVEL 106 MEQ/L (98-107); CREATININE FOR GFR 1.21 MG/DL (0.55-1.30); FREE T4 1.25 NG/DL (0.76-1.46); GLOMERULAR FILTRATION RATE 46.3 (>39); GLUCOSE, FASTING 100 MG/DL (70-100); PTH INTACT 76.5 PG/ML (18.5-88.0); SODIUM LEVEL 138 MEQ/L (136-145); TOTAL PROTEIN 6.8 GM/DL (6.4-8.2)
[2020-06-04 10:05] LABS: TOTAL 25(OH) VITAMIN D 36.4 NG/ML (30.0-100.0)
[2020-06-04 10:07] LABS: ALBUMIN 4.21 GM/DL (3.29-5.55); ALBUMIN % 61.9 % (55.8-66.1); ALPHA-1-GLOBULIN % 3.9 % (2.9-4.9); ALPHA-2-GLOBULINS % 12.4 % (7.1-11.8); BETA-1-GLOBULINS % 6.2 % (4.7-7.2); BETA-2-GLOBULINS % 4.4 % (3.2-6.5); GAMMA GLOBULIN % 11.2 % (11.1-18.8)
[2020-06-04 10:08] LABS: ALPHA-1-GLOBULINS 0.27 GM/DL (0.17-0.41); ALPHA-2-GLOBULINS 0.84 GM/DL (0.42-0.99); BETA-1-GLOBULINS 0.42 GM/DL (0.28-0.60); GAMMA GLOBULINS 0.76 GM/DL (0.65-1.58)
== END ==
LOC: M SFHCPLAZ 13:49
PROVIDERS: ATTEND Family Medicine
DX: E55.9 Vitamin D deficiency, unspecified (principal); E03.9 Hypothyroidism, unspecified; E11.9 Type 2 diabetes mellitus without complications; D47.2 Monoclonal gammopathy; Z79.82 Long term (current) use of aspirin; Z79.899 Other long term (current) drug therapy

== ENCOUNTER → 2020-05-31 | Outpatient (CLI) | payer MEDICARE ==
[2020-05-31 11:55] LABS: HEMATOCRIT 40.9 % (36.0-47.0); HEMOGLOBIN 13.1 g/dl (12.0-15.5); MEAN CORPUSCULAR VOLUME 93.8 fl (80.0-96.0); PLATELET COUNT, AUTOMATED 185 10^3/uL (150-450); RED BLOOD COUNT 4.36 10^6/uL (4.00-5.40); WHITE BLOOD COUNT 4.2 10^3/uL (4.0-10.0)
[2020-05-31 12:05] LABS: ALBUMIN 3.9 GM/DL (3.2-5.2); BILIRUBIN,TOTAL 0.4 MG/DL (0.2-1.0); CALCIUM LEVEL 9.3 MG/DL (8.8-10.2); CREATININE FOR GFR 1.38 MG/DL (0.55-1.30); GLOMERULAR FILTRATION RATE 39.8 (>39); POTASSIUM SERUM 5.4 MEQ/L (3.5-5.1)
[2020-05-31 12:32] LABS: HEMOGLOBIN A1c 5.8 %
== END ==
LOC: M PLALAB 07:57
PROVIDERS: ATTEND Family Medicine
DX: E11.9 Type 2 diabetes mellitus without complications (principal); M81.0 Age-related osteoporosis without current pathological fracture

== ENCOUNTER 2020-06-01 08:23 | Outpatient (CLI) | payer MEDICARE ==
[~2020-06-01] VITALS: Ht 160 cm; Wt 64.3 kg
[~2020-06-01 08:23] MED LIST changes: -SITA50TAB PO
[2020-06-01 08:25] VITALS: BP 134/72
[2020-06-01] MEDS ORDERED: ZOLEDRONIC ACID 5 MG 100ML IVBAG (RECLAST)(J3489 PER 1MG) As Ordered ONE (08:25)
[2020-06-01] MEDS ORDERED: ZOLEDRONIC ACID 5 MG 100ML IVBAG (RECLAST)(J3489 PER 1MG) IV ONE (08:30)
[2020-06-01] MEDS ORDERED: SITA50TAB PO (08:49)
[2020-06-01 09:10] VITALS: BP 121/59
[2020-06-01 09:35] VITALS: BP 121/59
== END 2020-06-01 09:35 | disposition home or self-care (01) ==
LOC: M INFU 08:23
PROVIDERS: ATTEND Family Medicine
DX: M85.80 Other specified disorders of bone density and structure, unspecified site (principal)
CPT/HCPCS: 96374; J3489

== ENCOUNTER → 2021-02-26 | Outpatient (REF) | payer MEDICARE ==
[~2021-02-26] MED LIST changes: +GABA-283 PO; -GABA-845 PO; +MECL-136; -MECL12.589; +SITA50TAB PO
[2021-02-26 18:04] LABS: BASO % 0.2 % (0.0-1.0); EOS # 0.1 10^3/uL (0.0-0.5); EOS % 1.7 % (0.0-3.0); HEMATOCRIT 40.3 % (36.0-47.0); HEMOGLOBIN 12.7 g/dl (12.0-15.5); LYMPH % 37.8 % (24.0-44.0); MEAN CORPUSCULAR HEMOGLOBIN 29.7 pg (27.0-33.0); MEAN CORPUSCULAR HGB CONC 31.5 g/dl (32.0-36.5); MEAN CORPUSCULAR VOLUME 94.2 fl (80.0-96.0); MONO # 0.4 10^3/uL (0.0-0.8); MONO % 7.1 % (2.0-8.0); NEUTROPHILS # 2.8 10^3/uL (1.5-8.5); NEUTROPHILS % 52.8 % (36.0-66.0); PLATELET COUNT, AUTOMATED 173 10^3/uL (150-450); RED BLOOD COUNT 4.28 10^6/uL (4.00-5.40); WHITE BLOOD COUNT 5.3 10^3/uL (4.0-10.0)
[2021-02-26 18:37] LABS: ALBUMIN 4.1 GM/DL (3.2-5.2); ALT/SGPT 32 U/L (12-78); BILIRUBIN,TOTAL 0.4 MG/DL (0.2-1.0); BLOOD UREA NITROGEN 16 MG/DL (7-18); CALCIUM LEVEL 9.1 MG/DL (8.8-10.2); CARBON DIOXIDE LEVEL 28 MEQ/L (21-32); CHLORIDE LEVEL 110 MEQ/L (98-107); CREATININE FOR GFR 1.06 MG/DL (0.55-1.30); FERRITIN 13 NG/ML (8-252); FREE T4 1.25 NG/DL (0.76-1.46); GLOMERULAR FILTRATION RATE 53.8 (>39); GLUCOSE, FASTING 96 MG/DL (70-100); IMMUNOGLOBULIN G 865 MG/DL (681-1648); IMMUNOGLOBULIN M 96.8 MG/DL (40-230); POTASSIUM SERUM 4.8 MEQ/L (3.5-5.1); PTH INTACT 87.6 PG/ML (18.5-88.0); SODIUM LEVEL 143 MEQ/L (136-145); TOTAL PROTEIN 7.1 GM/DL (6.4-8.2)
[2021-02-26 20:42] LABS: HEMOGLOBIN A1c 6.5 %
[2021-02-27 14:35] LABS: ALBUMIN 4.44 GM/DL (3.29-5.55); ALBUMIN % 62.5 % (55.8-66.1); ALPHA-1-GLOBULIN % 3.7 % (2.9-4.9); ALPHA-1-GLOBULINS 0.26 GM/DL (0.17-0.41); ALPHA-2-GLOBULINS 0.84 GM/DL (0.42-0.99); ALPHA-2-GLOBULINS % 11.9 % (7.1-11.8); BETA-1-GLOBULINS 0.47 GM/DL (0.28-0.60); BETA-1-GLOBULINS % 6.6 % (4.7-7.2); BETA-2-GLOBULINS % 4.2 % (3.2-6.5); GAMMA GLOBULIN % 11.1 % (11.1-18.8); GAMMA GLOBULINS 0.79 GM/DL (0.65-1.58)
== END ==
LOC: M SFHCPLAZ 15:14
PROVIDERS: ATTEND Family Medicine
DX: E03.9 Hypothyroidism, unspecified (principal); I12.9 Hypertensive chronic kidney disease with stage 1 through stage 4 chronic kidney disease, or unspecified chronic kidney disease; D47.2 Monoclonal gammopathy; N18.30 Chronic kidney disease, stage 3 unspecified; D50.9 Iron deficiency anemia, unspecified; Z79.899 Other long term (current) drug therapy

== ENCOUNTER 2021-06-04 11:54 | Outpatient (CLI) | payer MEDICARE ==
[~2021-06-04] VITALS: Ht 167.6 cm; Wt 70.0 kg
[~2021-06-04 11:54] MED LIST changes: -DIVA500T94; +DIVA500T94 PO
[2021-06-04 12:00] VITALS: BP 166/71
[2021-06-04] MEDS ORDERED: ZOLEDRONIC ACID 5 MG in IV 1 EA IV ONE (12:00)
[2021-06-04 12:52] VITALS: BP 142/64
== END 2021-06-04 12:55 | disposition home or self-care (01) ==
LOC: M INFU 11:54
PROVIDERS: ATTEND Family Medicine
DX: M85.80 Other specified disorders of bone density and structure, unspecified site (principal)
CPT/HCPCS: 96365; J3489

== ENCOUNTER → 2021-06-12 | Outpatient (CLI) | payer MEDICARE ==
--- NOTE | 2021-06-12 08:15 | REPMRS ---
Patient History The patient states she has not had a clinical breast exam in over a year. Patient is postmenopausal. Family history of breast cancer at age 70 in sister. Benign radio exam breast specimen of the left breast, October 18, 2013. Benign stereotatic loc for ea lesion of the left breast, October 18, 2013. Patient states no breast complaints today. Patient has signed MRS History Sheet. Digital Woman Screen Mammo: June 12, 2021 - Exam #: [id number] Bilateral CC and MLO view(s) were taken. Technologist: Yolanda Sanders, Technologist Prior study comparison: January 04, 2020, bilateral digital woman screen mammo performed at [facility]. December 29, 2018, bilateral digital woman screen mammo performed at [facility]. December 18, 2017, digital woman screen mammo performed at [facility]. FINDINGS: There are scattered fibroglandular densities. The Volpara volumetric breast density category is:B. There is a needle biopsy marker clip noted in the left breast. There has been no change in the appearance of the mammogram from the prior studies. There is a mild amount of scattered fibroglandular density which is fairly symmetric. There is no interval development of dominant mass, architectural distortion, or grouped microcalcification suggestive of malignancy. 3-D tomosynthesis shows no additional findings. Assessment: BI-RADS/ACR category 2 mammogram. Benign Findings. Recommendation Routine screening mammogram of both breasts in 1 year (for women over age 40). This patient's [facility] Lifetime Breast Cancer Risk is estimated at 5.3 %. This mammogram was interpreted with the aid of an FDA-approved computer-aided dectection system. Electronically Signed By: Uziel Felix MD 06/12/21 0814
== END ==
LOC: M WHC 07:11
PROVIDERS: ATTEND Family Medicine
DX: Z12.31 Encounter for screening mammogram for malignant neoplasm of breast (principal)

== ENCOUNTER → 2021-07-06 | Outpatient (CLI) | payer MEDICARE ==
[2021-07-06 13:30] LABS: BASO % 0.2 % (0.0-1.0); EOS # 0.1 10^3/uL (0.0-0.5); EOS % 1.5 % (0.0-3.0); HEMATOCRIT 41.9 % (36.0-47.0); HEMOGLOBIN 13.5 g/dl (12.0-15.5); LYMPH % 34.2 % (24.0-44.0); MEAN CORPUSCULAR HEMOGLOBIN 29.5 pg (27.0-33.0); MEAN CORPUSCULAR HGB CONC 32.2 g/dl (32.0-36.5); MEAN CORPUSCULAR VOLUME 91.5 fl (80.0-96.0); MONO # 0.5 10^3/uL (0.0-0.8); NEUTROPHILS # 3.3 10^3/uL (1.5-8.5); NEUTROPHILS % 55.8 % (36.0-66.0); PLATELET COUNT, AUTOMATED 177 10^3/uL (150-450); RED BLOOD COUNT 4.58 10^6/uL (4.00-5.40); WHITE BLOOD COUNT 5.9 10^3/uL (4.0-10.0)
[2021-07-06 14:03] LABS: TOTAL PROTEIN,RANDOM URINE 17.1 MG/DL (0.0-12.0)
[2021-07-06 14:14] LABS: HEMOGLOBIN A1c 6.7 %
[2021-07-06 14:47] LABS: ALBUMIN 3.9 GM/DL (3.2-5.2); BILIRUBIN,TOTAL 0.4 MG/DL (0.2-1.0); CALCIUM LEVEL 9.2 MG/DL (8.8-10.2); CHOLESTEROL RISK RATIO 3.081 (<5); CREATININE FOR GFR 1.3 MG/DL (0.55-1.30); GLOMERULAR FILTRATION RATE 42.5 (>39); POTASSIUM SERUM 4.9 MEQ/L (3.5-5.1); TOTAL PROTEIN 7.1 GM/DL (6.4-8.2)
[2021-07-09 17:07] LABS: FREE KAPPA LIGHT CHAINS SERUM 35.5 mg/L (3.3-19.4); FREE KAPPA LIGHT CHAINS URINE 15.78 mg/L (0.63-113.79); FREE LAMBDA LIGHT CHAINS SERUM 27.4 mg/L (5.7-26.3); FREE LAMBDA LIGHT CHAINS URINE 3.25 mg/L (0.47-11.77); INSULIN LEVEL 9.5 uIU/mL (2.6-24.9); KAPPA/LAMBDA RATIO SERUM 1.3 (0.26-1.65); KAPPA/LAMBDA RATIO URINE 4.86 (1.03-31.76)
== END ==
LOC: M PLALAB 09:54
PROVIDERS: ATTEND Family Medicine
DX: D47.2 Monoclonal gammopathy (principal); I10 Essential (primary) hypertension; E11.9 Type 2 diabetes mellitus without complications

== ENCOUNTER → 2021-08-24 | Outpatient (CLI) | payer MEDICARE ==
[2021-08-24 11:03] LABS: BASO % 0.4 % (0.0-1.0); EOS # 0.1 10^3/uL (0.0-0.5); EOS % 2.1 % (0.0-3.0); HEMATOCRIT 39.1 % (36.0-47.0); HEMOGLOBIN 12.5 g/dl (12.0-15.5); LYMPH % 42.8 % (24.0-44.0); MEAN CORPUSCULAR HEMOGLOBIN 29.6 pg (27.0-33.0); MEAN CORPUSCULAR VOLUME 92.4 fl (80.0-96.0); MONO # 0.3 10^3/uL (0.0-0.8); MONO % 6.6 % (2.0-8.0); NEUTROPHILS # 2.2 10^3/uL (1.5-8.5); NEUTROPHILS % 47.2 % (36.0-66.0); PLATELET COUNT, AUTOMATED 180 10^3/uL (150-450); RED BLOOD COUNT 4.23 10^6/uL (4.00-5.40); WHITE BLOOD COUNT 4.7 10^3/uL (4.0-10.0)
[2021-08-24 13:07] LABS: CALCIUM LEVEL 9.3 MG/DL (8.8-10.2); FREE T4 1.03 NG/DL (0.76-1.46); THYROID STIMULATING HORMONE 11.9 uIU/ML (0.358-3.740)
[2021-08-24 13:08] LABS: TOTAL 25(OH) VITAMIN D 27.8 NG/ML (30.0-100.0)
== END ==
LOC: M PLALAB 07:46
PROVIDERS: ATTEND Physician Assistant Medical
DX: E03.9 Hypothyroidism, unspecified (principal); D50.9 Iron deficiency anemia, unspecified; E53.8 Deficiency of other specified B group vitamins; E55.9 Vitamin D deficiency, unspecified

== ENCOUNTER → 2021-10-24 | Outpatient (CLI) | payer OTHER ==
[2021-10-24 10:29] LABS: BASO % 0.2 % (0.0-1.0); EOS # 0.1 10^3/uL (0.0-0.5); EOS % 1.7 % (0.0-3.0); HEMATOCRIT 40.8 % (36.0-47.0); HEMOGLOBIN 12.7 g/dl (12.0-15.5); LYMPH % 41.7 % (24.0-44.0); MEAN CORPUSCULAR HEMOGLOBIN 29.5 pg (27.0-33.0); MEAN CORPUSCULAR HGB CONC 31.1 g/dl (32.0-36.5); MEAN CORPUSCULAR VOLUME 94.7 fl (80.0-96.0); MONO # 0.4 10^3/uL (0.0-0.8); MONO % 9.1 % (2.0-8.0); NEUTROPHILS # 2.3 10^3/uL (1.5-8.5); NEUTROPHILS % 47.1 % (36.0-66.0); PLATELET COUNT, AUTOMATED 185 10^3/uL (150-450); RED BLOOD COUNT 4.31 10^6/uL (4.00-5.40); WHITE BLOOD COUNT 4.8 10^3/uL (4.0-10.0)
[2021-10-24 11:38] LABS: CALCIUM LEVEL 9.3 MG/DL (8.8-10.2); FREE T4 1.21 NG/DL (0.76-1.46); PTH INTACT 73.6 PG/ML (18.5-88.0); THYROID STIMULATING HORMONE 2.76 uIU/ML (0.358-3.740)
== END ==
LOC: M PLALAB 06:59
PROVIDERS: ATTEND Physician Assistant Medical
DX: E03.9 Hypothyroidism, unspecified (principal); D50.9 Iron deficiency anemia, unspecified; E53.8 Deficiency of other specified B group vitamins; E55.9 Vitamin D deficiency, unspecified; Z79.899 Other long term (current) drug therapy

== ENCOUNTER → 2022-04-25 | Outpatient (CLI) | payer OTHER ==
[2022-04-25 13:51] LABS: BASO % 0.2 % (0.0-1.0); EOS # 0.1 10^3/uL (0.0-0.5); EOS % 1.9 % (0.0-3.0); HEMATOCRIT 40.2 % (36.0-47.0); HEMOGLOBIN 12.8 g/dl (12.0-15.5); LYMPH # 1.9 10^3/uL (1.5-5.0); MEAN CORPUSCULAR HEMOGLOBIN 29.9 pg (27.0-33.0); MEAN CORPUSCULAR HGB CONC 31.8 g/dl (32.0-36.5); MEAN CORPUSCULAR VOLUME 93.9 fl (80.0-96.0); MONO # 0.4 10^3/uL (0.0-0.8); MONO % 8.8 % (2.0-8.0); NEUTROPHILS # 1.8 10^3/uL (1.5-8.5); NEUTROPHILS % 42.6 % (36.0-66.0); PLATELET COUNT, AUTOMATED 163 10^3/uL (150-450); RED BLOOD COUNT 4.28 10^6/uL (4.00-5.40); WHITE BLOOD COUNT 4.2 10^3/uL (4.0-10.0)
[2022-04-25 13:55] LABS: ALBUMIN 3.7 GM/DL (3.2-5.2); ALT/SGPT 27 U/L (12-78); BILIRUBIN,TOTAL 0.3 MG/DL (0.2-1.0); BLOOD UREA NITROGEN 12 MG/DL (7-18); CALCIUM LEVEL 9.1 MG/DL (8.8-10.2); CARBON DIOXIDE LEVEL 27 MEQ/L (21-32); CHLORIDE LEVEL 111 MEQ/L (98-107); CREATININE FOR GFR 1.36 MG/DL (0.55-1.30); GLOMERULAR FILTRATION RATE 40.2 (>39); GLUCOSE, FASTING 125 MG/DL (70-100); NT-PRO BNP 291 PG/ML (<450); POTASSIUM SERUM 5.3 MEQ/L (3.5-5.1); SODIUM LEVEL 142 MEQ/L (136-145); TOTAL PROTEIN 6.8 GM/DL (6.4-8.2)
[2022-04-25 14:21] LABS: HEMOGLOBIN A1c 6.7 %
[2022-04-26 08:09] LABS: H PYLORI SERUM QUANT IgG ABY 0.16 (0.00-0.79); INSULIN LEVEL 9.4 uIU/mL (2.6-24.9)
[2022-05-02 07:46] LABS: ALBUMIN 4.18 GM/DL (3.29-5.55); ALBUMIN % 61.4 % (55.8-66.1); ALPHA-1-GLOBULIN % 3.8 % (2.9-4.9); ALPHA-1-GLOBULINS 0.26 GM/DL (0.17-0.41); ALPHA-2-GLOBULINS 0.83 GM/DL (0.42-0.99); ALPHA-2-GLOBULINS % 12.2 % (7.1-11.8); BETA-1-GLOBULINS 0.48 GM/DL (0.28-0.60); BETA-2-GLOBULINS 0.29 GM/DL (0.19-0.55); BETA-2-GLOBULINS % 4.2 % (3.2-6.5); GAMMA GLOBULIN % 11.4 % (11.1-18.8); GAMMA GLOBULINS 0.78 GM/DL (0.65-1.58)
== END ==
LOC: M PLALAB 09:37
PROVIDERS: ATTEND Family Medicine
DX: D47.2 Monoclonal gammopathy (principal); I10 Essential (primary) hypertension; E11.9 Type 2 diabetes mellitus without complications; D50.9 Iron deficiency anemia, unspecified

== ENCOUNTER 2022-06-17 09:48 | Outpatient (CLI) | payer OTHER ==
[2022-06-17 09:50] VITALS: BP 110/59
[2022-06-17] MEDS ORDERED: ZOLEDRONIC ACID 5 MG in IV 1 EA IV ONE (10:00)
[2022-06-17 10:30] VITALS: BP 122/59
== END 2022-06-17 10:35 | disposition home or self-care (01) ==
LOC: M INFU 09:48
PROVIDERS: ATTEND Family Medicine
DX: M85.9 Disorder of bone density and structure, unspecified (principal); Z91.048 Other nonmedicinal substance allergy status
CPT/HCPCS: 96365; J3489

== ENCOUNTER → 2022-06-21 | Outpatient (CLI) | payer OTHER | LOC: M WHC 11:55 | PROVIDERS: ATTEND Family Medicine | DX: Z12.31 Encounter for screening mammogram for malignant neoplasm of breast (principal); M85.89 Other specified disorders of bone density and structure, multiple sites ==

== ENCOUNTER → 2022-09-18 | Outpatient (REF) | payer OTHER ==
[2022-09-18 13:09] LABS: BASO % 0.2 % (0.0-1.0); HEMATOCRIT 36.6 % (36.0-47.0); HEMOGLOBIN 11.9 g/dl (12.0-15.5); LYMPH # 1.7 10^3/uL (1.5-5.0); LYMPH % 41.6 % (24.0-44.0); MEAN CORPUSCULAR HGB CONC 32.5 g/dl (32.0-36.5); MEAN CORPUSCULAR VOLUME 92.2 fl (80.0-96.0); MONO # 0.4 10^3/uL (0.0-0.8); MONO % 8.4 % (2.0-8.0); NEUTROPHILS % 48.6 % (36.0-66.0); PLATELET COUNT, AUTOMATED 153 10^3/uL (150-450); RED BLOOD COUNT 3.97 10^6/uL (4.00-5.40); WHITE BLOOD COUNT 4.2 10^3/uL (4.0-10.0)
[2022-09-18 13:29] LABS: FERRITIN 8.6 NG/ML (7.3-270.7); FREE T4 1.55 NG/DL (0.89-1.76); THYROID STIMULATING HORMONE 0.795 uIU/ML (0.55-4.78)
[2022-09-18 13:30] LABS: VALPROIC ACID (DEPAKOTE) 30.5 UG/ML (50.0-100.0)
[2022-09-18 13:32] LABS: CHOLESTEROL RISK RATIO 2.61 (<5); HDL CHOLESTEROL 47.8 MG/DL (>40); LDL CHOLESTEROL 58.4 MG/DL (<100); PTH INTACT 74.8 PG/ML (18.5-88.0)
[2022-09-18 13:35] LABS: HEMOGLOBIN A1c 5.6 % (4.0-6.0)
== END ==
LOC: M LABWUC 12:24
PROVIDERS: ATTEND Family Medicine
DX: E03.9 Hypothyroidism, unspecified (principal); D50.9 Iron deficiency anemia, unspecified; E11.9 Type 2 diabetes mellitus without complications; E55.9 Vitamin D deficiency, unspecified

== ENCOUNTER 2023-01-29 16:10 | Emergency (ER) | payer OTHER ==
[~2023-01-29] VITALS: Ht 160 cm; Wt 62.5 kg
[~2023-01-29 16:10] MED LIST changes: +TOPI-254 PO; -TOPI50TA9 PO
[2023-01-29 17:26] LABS: BASO % 0.2 % (0.0-1.0); EOS # 0.1 10^3/uL (0.0-0.5); EOS % 1.2 % (0.0-3.0); HEMOGLOBIN 12.8 g/dl (12.0-15.5); LYMPH # 1.8 10^3/uL (1.5-5.0); LYMPH % 40.7 % (24.0-44.0); MEAN CORPUSCULAR HEMOGLOBIN 30.5 pg (27.0-33.0); MEAN CORPUSCULAR HGB CONC 32.8 g/dl (32.0-36.5); MEAN CORPUSCULAR VOLUME 93.1 fl (80.0-96.0); MONO # 0.4 10^3/uL (0.0-0.8); MONO % 8.4 % (2.0-8.0); NEUTROPHILS # 2.1 10^3/uL (1.5-8.5); PLATELET COUNT, AUTOMATED 157 10^3/uL (150-450); RED BLOOD COUNT 4.19 10^6/uL (4.00-5.40); WHITE BLOOD COUNT 4.3 10^3/uL (4.0-10.0)
[2023-01-29 17:56] LABS: CALCIUM LEVEL 8.5 MG/DL (8.3-10.6); CREATININE FOR GFR 1.16 MG/DL (0.55-1.30); GLOMERULAR FILTRATION RATE 48.2 (>39); POTASSIUM SERUM 4.5 MMOL/L (3.5-5.1)
[2023-01-29] MEDS ORDERED: ISOVUE-370 76% 100ML VIAL As Ordered ONE (19:24)
[2023-01-29 19:58] LABS: INR 0.93; PROTHROMBIN TIME 12.7 SECONDS (12.5-14.5)
[2023-01-29 19:59] LABS: PARTIAL THROMBOPLASTIN TIME 28.6 SECONDS (24.8-34.2)
[2023-01-29 20:15] LABS: CK-MB VALUE MASS < 1.0 NG/ML (<3.6)
[2023-01-29 20:17] LABS: CPK CREATINE PHOSPHOKINASE 64 U/L (34-145); MB/CK RELATIVE INDEX 1.56 (< OR =4)
[2023-01-29 21:16] LABS: CK-MB VALUE MASS < 1.0 NG/ML (<3.6)
[2023-01-29 21:21] LABS: CPK CREATINE PHOSPHOKINASE 61 U/L (34-145); MB/CK RELATIVE INDEX 1.63 (< OR =4)
[2023-01-29] MEDS ORDERED: PROP10TA56 PO (22:28)
[2023-01-29 23:37] VITALS: BP 154/86
== END 2023-01-29 23:45 | disposition short-term general hospital (02) ==
LOC: M ED 16:10
DX: M71.38 Other bursal cyst, other site (principal); M54.16 Radiculopathy, lumbar region; R00.1 Bradycardia, unspecified; I25.2 Old myocardial infarction; I10 Essential (primary) hypertension; G43.909 Migraine, unspecified, not intractable, without status migrainosus; K76.0 Fatty (change of) liver, not elsewhere classified; Z87.891 Personal history of nicotine dependence; Z87.442 Personal history of urinary calculi; Z79.82 Long term (current) use of aspirin; Z79.891 Long term (current) use of opiate analgesic; Z79.899 Other long term (current) drug therapy; Z91.048 Other nonmedicinal substance allergy status
CPT/HCPCS: 36415; 71275; 72131; 80048; 81001; 82550; 82553; 83880; 84484; 85025; 85610; 85730; 87086; 93005; 93041; 99285; Q9967

== ENCOUNTER → 2023-02-11 | Outpatient (CLI) | payer OTHER | LOC: M WUC 09:48 | PROVIDERS: ATTEND Family Medicine | DX: D50.9 Iron deficiency anemia, unspecified (principal); E11.9 Type 2 diabetes mellitus without complications; D47.2 Monoclonal gammopathy; E03.9 Hypothyroidism, unspecified; Z53.9 Procedure and treatment not carried out, unspecified reason ==

== ENCOUNTER → 2023-02-11 | Outpatient (CLI) | payer OTHER ==
[2023-02-11 13:00] LABS: BASO % 0.1 % (0.0-1.0); EOS # 0.1 10^3/uL (0.0-0.5); EOS % 1.5 % (0.0-3.0); HEMATOCRIT 40.6 % (36.0-47.0); HEMOGLOBIN 12.9 g/dl (12.0-15.5); LYMPH # 2.4 10^3/uL (1.5-5.0); LYMPH % 34.3 % (24.0-44.0); MEAN CORPUSCULAR HEMOGLOBIN 30.5 pg (27.0-33.0); MEAN CORPUSCULAR HGB CONC 31.8 g/dl (32.0-36.5); MONO # 0.5 10^3/uL (0.0-0.8); MONO % 6.7 % (2.0-8.0); NEUTROPHILS # 3.9 10^3/uL (1.5-8.5); NEUTROPHILS % 56.7 % (36.0-66.0); PLATELET COUNT, AUTOMATED 158 10^3/uL (150-450); RED BLOOD COUNT 4.23 10^6/uL (4.00-5.40); WHITE BLOOD COUNT 6.9 10^3/uL (4.0-10.0)
[2023-02-11 13:02] LABS: ALBUMIN 4.1 G/DL (3.2-5.2); BILIRUBIN,TOTAL 0.4 MG/DL (0.3-1.2); CALCIUM LEVEL 9.3 MG/DL (8.3-10.6); CREATININE FOR GFR 1.28 MG/DL (0.55-1.30); POTASSIUM SERUM 4.3 MMOL/L (3.5-5.1); TOTAL PROTEIN 6.6 G/DL (5.7-8.2)
[2023-02-11 13:06] LABS: FERRITIN 18.1 NG/ML (7.3-270.7); FREE T4 1.25 NG/DL (0.89-1.76)
[2023-02-11 13:07] LABS: THYROID STIMULATING HORMONE 6.317 uIU/ML (0.55-4.78)
[2023-02-11 13:15] LABS: HEMOGLOBIN A1c 6.1 % (4.0-6.0)
== END ==
LOC: M WUC 09:44
PROVIDERS: ATTEND Family Medicine
DX: E11.9 Type 2 diabetes mellitus without complications (principal); D50.9 Iron deficiency anemia, unspecified; D47.2 Monoclonal gammopathy; E03.9 Hypothyroidism, unspecified

== ENCOUNTER → 2023-02-21 | Outpatient (REF) | payer OTHER | LOC: M SFHCPLAZ 16:38 | PROVIDERS: ATTEND Family Medicine | DX: D50.9 Iron deficiency anemia, unspecified (principal); E11.9 Type 2 diabetes mellitus without complications; D47.2 Monoclonal gammopathy; E03.9 Hypothyroidism, unspecified ==

== ENCOUNTER → 2023-06-30 | Outpatient (CLI) | payer OTHER ==
[~2023-06-30] MED LIST changes: -GABA-283 PO; +GABA-284 PO
[2023-06-30 14:32] LABS: BASO % 0.1 % (0.0-1.0); EOS # 0.1 10^3/uL (0.0-0.5); EOS % 1.1 % (0.0-3.0); HEMATOCRIT 40.2 % (36.0-47.0); HEMOGLOBIN 12.9 g/dl (12.0-15.5); LYMPH # 1.9 10^3/uL (1.5-5.0); LYMPH % 26.2 % (24.0-44.0); MEAN CORPUSCULAR HEMOGLOBIN 30.7 pg (27.0-33.0); MEAN CORPUSCULAR HGB CONC 32.1 g/dl (32.0-36.5); MEAN CORPUSCULAR VOLUME 95.7 fl (80.0-96.0); MONO # 0.6 10^3/uL (0.0-0.8); MONO % 8.4 % (2.0-8.0); NEUTROPHILS # 4.7 10^3/uL (1.5-8.5); NEUTROPHILS % 63.7 % (36.0-66.0); PLATELET COUNT, AUTOMATED 173 10^3/uL (150-450); WHITE BLOOD COUNT 7.4 10^3/uL (4.0-10.0)
[2023-07-01 00:49] LABS: CREATININE, URINE 108.7 MG/DL; MAU/CREAT RATIO 27.5 MCG/MG (0.0-30.0)
[2023-07-01 01:10] LABS: FERRITIN 16.3 NG/ML (7.3-270.7); THYROID STIMULATING HORMONE 2.99 uIU/ML (0.55-4.78)
[2023-07-01 01:11] LABS: FREE T4 1.4 NG/DL (0.89-1.76)
[2023-07-01 01:36] LABS: ALBUMIN 4.2 G/DL (3.2-5.2); BILIRUBIN,TOTAL 0.5 MG/DL (0.3-1.2); CALCIUM LEVEL 9.5 MG/DL (8.3-10.6); CREATININE FOR GFR 1.12 MG/DL (0.55-1.30); GLOMERULAR FILTRATION RATE 50.2 (>39); POTASSIUM SERUM 4.7 MMOL/L (3.5-5.1); TOTAL PROTEIN 7.1 G/DL (5.7-8.2)
== END ==
LOC: M WUC 09:21
PROVIDERS: ATTEND Family Medicine
DX: D50.9 Iron deficiency anemia, unspecified (principal); E11.9 Type 2 diabetes mellitus without complications; D47.2 Monoclonal gammopathy; E03.9 Hypothyroidism, unspecified

== ENCOUNTER → 2023-07-03 | Outpatient (CLI) | payer OTHER | LOC: M WHC 13:04 | PROVIDERS: ATTEND Family Medicine | DX: Z12.31 Encounter for screening mammogram for malignant neoplasm of breast (principal) ==

== ENCOUNTER 2023-07-04 16:03 | Outpatient (CLI) | payer OTHER ==
[~2023-07-04] VITALS: Ht 160 cm; Wt 65.0 kg
[2023-07-04 16:15] VITALS: BP 155/84; O2SAT 100
[2023-07-04 16:54] VITALS: BP 132/62; O2SAT 97
[2023-07-04] MEDS ORDERED: ZOLEDRONIC ACID 5 MG in IV 1 EA IV ONE (17:00)
== END 2023-07-04 16:54 ==
LOC: M INFU 16:03
PROVIDERS: ATTEND Family Medicine
DX: M85.80 Other specified disorders of bone density and structure, unspecified site (principal); Z91.048 Other nonmedicinal substance allergy status
CPT/HCPCS: 96365; J3489

== ENCOUNTER → 2023-07-18 | Outpatient (CLI) | payer OTHER | LOC: M WHC 14:00 | PROVIDERS: ATTEND Family Medicine | DX: Z12.31 Encounter for screening mammogram for malignant neoplasm of breast (principal) ==

== ENCOUNTER → 2023-08-27 | Outpatient (CLI) | payer OTHER ==
[~2023-08-27] MED LIST changes: +TOPI-21 PO; -TOPI-254 PO
== END ==
LOC: M PAIN 13:00
PROVIDERS: ATTEND Anesthesiology
DX: M51.16 Intervertebral disc disorders with radiculopathy, lumbar region (principal); G89.29 Other chronic pain; Z87.891 Personal history of nicotine dependence; Z79.82 Long term (current) use of aspirin; Z79.899 Other long term (current) drug therapy

== ENCOUNTER 2023-09-11 14:00 | Emergency (ER) | payer OTHER ==
[~2023-09-11] VITALS: Ht 160 cm; Wt 61.2 kg
[2023-09-11 14:48] LABS: ABG HCO3 21.2 MMOL/L (22.0-26.0); ABG O2 SATURATION 95.4 % (95.0-99.0); ABG PARTIAL PRESSURE CO2 31.7 mmHg (35.0-45.0); ABG STANDARD HCO3 22.8 MMOL/L. (22.0-26.0); ABG TOTAL CO2 22.2 MMOL/L (23.0-31.0); ABG pH (ARTERIAL) 7.444 UNITS (7.350-7.450)
[2023-09-11 15:03] LABS: BASO % 0.2 % (0.0-1.0); EOS # 0.1 10^3/uL (0.0-0.5); EOS % 0.8 % (0.0-3.0); HEMATOCRIT 34.7 % (36.0-47.0); HEMOGLOBIN 11.5 g/dl (12.0-15.5); LYMPH # 1.5 10^3/uL (1.5-5.0); LYMPH % 12.8 % (24.0-44.0); MEAN CORPUSCULAR HEMOGLOBIN 30.5 pg (27.0-33.0); MEAN CORPUSCULAR HGB CONC 33.1 g/dl (32.0-36.5); MONO # 1.4 10^3/uL (0.0-0.8); MONO % 12.6 % (2.0-8.0); NEUTROPHILS # 8.3 10^3/uL (1.5-8.5); NEUTROPHILS % 72.6 % (36.0-66.0); PLATELET COUNT, AUTOMATED 165 10^3/uL (150-450); RED BLOOD COUNT 3.77 10^6/uL (4.00-5.40); WHITE BLOOD COUNT 11.4 10^3/uL (4.0-10.0)
[2023-09-11 15:31] LABS: CK-MB VALUE MASS < 1.0 NG/ML (<3.6)
[2023-09-11 15:32] LABS: ALBUMIN 3.3 G/DL (3.2-5.2); ALKALINE PHOSPHATASE 59 U/L (46-116); ALT/SGPT 10 U/L (7.0-40); AST/SGOT 11 U/L (<34); BILIRUBIN,DIRECT 0.3 MG/DL (<0.4); BILIRUBIN,TOTAL 0.6 MG/DL (0.3-1.2); BLOOD UREA NITROGEN 14 MG/DL (9-23); CALCIUM LEVEL 8.5 MG/DL (8.3-10.6); CARBON DIOXIDE LEVEL 24 MMOL/L (20-31); CHLORIDE LEVEL 107 MMOL/L (98-107); CREATININE FOR GFR 1.06 MG/DL (0.55-1.30); GLOMERULAR FILTRATION RATE 53.5 (>39); GLUCOSE, FASTING 147 MG/DL (74-106); POTASSIUM SERUM 3.5 MMOL/L (3.5-5.1); SODIUM LEVEL 140 MMOL/L (136-145); TOTAL PROTEIN 6.4 G/DL (5.7-8.2)
[2023-09-11 15:33] LABS: CPK CREATINE PHOSPHOKINASE 69 U/L (34-145); MB/CK RELATIVE INDEX 1.44 (< OR =4)
[2023-09-11 15:34] LABS: THYROID STIMULATING HORMONE 3.499 uIU/ML (0.55-4.78); THYROXINE (T4) 10.7 UG/DL (4.5-10.9)
[2023-09-11 19:26] VITALS: TEMP 98.9
[2023-09-11] MEDS ORDERED: CEFD1CAP9 PO (19:38)
[2023-09-11] MEDS ORDERED: BENZ200C70 PO (19:38)
[2023-09-11 19:43] VITALS: BP 148/90; O2SAT 96
== END 2023-09-11 19:59 | disposition home or self-care (01) ==
LOC: M ED 14:00
DX: N39.0 Urinary tract infection, site not specified (principal); J06.9 Acute upper respiratory infection, unspecified; Z79.82 Long term (current) use of aspirin; Z79.02 Long term (current) use of antithrombotics/antiplatelets; Z79.2 Long term (current) use of antibiotics; Z79.899 Other long term (current) drug therapy

== ENCOUNTER → 2023-09-25 | Outpatient (CLI) | payer OTHER ==
[~2023-09-25] MED LIST changes: +BENZ200C70 PO; +CEFD1CAP9 PO
== END ==
LOC: M PAIN 15:45
PROVIDERS: ATTEND Anesthesiology
DX: M51.16 Intervertebral disc disorders with radiculopathy, lumbar region (principal); G89.29 Other chronic pain; E11.22 Type 2 diabetes mellitus with diabetic chronic kidney disease; K21.9 Gastro-esophageal reflux disease without esophagitis; E78.5 Hyperlipidemia, unspecified; K59.09 Other constipation; N18.31 Chronic kidney disease, stage 3a; M81.0 Age-related osteoporosis without current pathological fracture; E03.9 Hypothyroidism, unspecified; E55.9 Vitamin D deficiency, unspecified; Z87.891 Personal history of nicotine dependence; Z79.890 Hormone replacement therapy; Z79.899 Other long term (current) drug therapy; Z79.82 Long term (current) use of aspirin

== ENCOUNTER → 2023-10-21 | Outpatient (CLI) | payer OTHER | LOC: M PAIN 15:15 | PROVIDERS: ATTEND Anesthesiology | DX: M51.16 Intervertebral disc disorders with radiculopathy, lumbar region (principal); M71.38 Other bursal cyst, other site; G89.29 Other chronic pain; E11.9 Type 2 diabetes mellitus without complications; K21.9 Gastro-esophageal reflux disease without esophagitis; E78.5 Hyperlipidemia, unspecified; E66.9 Obesity, unspecified; I12.9 Hypertensive chronic kidney disease with stage 1 through stage 4 chronic kidney disease, or unspecified chronic kidney disease; M81.0 Age-related osteoporosis without current pathological fracture; N18.31 Chronic kidney disease, stage 3a; E03.9 Hypothyroidism, unspecified; Z87.891 Personal history of nicotine dependence; Z79.82 Long term (current) use of aspirin; Z79.890 Hormone replacement therapy; Z79.899 Other long term (current) drug therapy ==

== ENCOUNTER → 2023-11-13 | Outpatient (CLI) | payer OTHER | LOC: M PAIN 16:00 | PROVIDERS: ATTEND Anesthesiology | DX: M71.38 Other bursal cyst, other site (principal); M51.16 Intervertebral disc disorders with radiculopathy, lumbar region; M47.816 Spondylosis without myelopathy or radiculopathy, lumbar region; E03.9 Hypothyroidism, unspecified; E11.9 Type 2 diabetes mellitus without complications; Z79.1 Long term (current) use of non-steroidal anti-inflammatories (NSAID); Z79.82 Long term (current) use of aspirin; Z79.890 Hormone replacement therapy; Z79.891 Long term (current) use of opiate analgesic ==

== ENCOUNTER → 2023-11-14 | Outpatient (REF) | payer OTHER | LOC: M SFHCPLAZ 12:06 | PROVIDERS: ATTEND Family Medicine | DX: E11.9 Type 2 diabetes mellitus without complications (principal); D50.9 Iron deficiency anemia, unspecified; I50.32 Chronic diastolic (congestive) heart failure; E78.2 Mixed hyperlipidemia ==

== ENCOUNTER → 2023-11-19 | Outpatient (CLI) | payer OTHER ==
[2023-11-19 12:09] LABS: BASO % 0.2 % (0.0-1.0); EOS # 0.1 10^3/uL (0.0-0.5); EOS % 1.2 % (0.0-3.0); HEMATOCRIT 38.2 % (36.0-47.0); HEMOGLOBIN 12.2 g/dl (12.0-15.5); LYMPH # 1.7 10^3/uL (1.5-5.0); LYMPH % 35.6 % (24.0-44.0); MEAN CORPUSCULAR HEMOGLOBIN 30.3 pg (27.0-33.0); MEAN CORPUSCULAR HGB CONC 31.9 g/dl (32.0-36.5); MEAN CORPUSCULAR VOLUME 94.8 fl (80.0-96.0); MONO # 0.4 10^3/uL (0.0-0.8); MONO % 7.7 % (2.0-8.0); NEUTROPHILS # 2.6 10^3/uL (1.5-8.5); NEUTROPHILS % 54.9 % (36.0-66.0); PLATELET COUNT, AUTOMATED 166 10^3/uL (150-450); RED BLOOD COUNT 4.03 10^6/uL (4.00-5.40); WHITE BLOOD COUNT 4.8 10^3/uL (4.0-10.0)
[2023-11-19 12:32] LABS: BILIRUBIN,TOTAL 0.5 MG/DL (0.3-1.2); CHOLESTEROL RISK RATIO 2.41 (<5); CREATININE FOR GFR 1.18 MG/DL (0.55-1.30); GLOMERULAR FILTRATION RATE 47.3 (>39); HDL CHOLESTEROL 56.8 MG/DL (>40); LDL CHOLESTEROL 66.2 MG/DL (<100); MAGNESIUM LEVEL 1.9 MG/DL (1.8-2.4); NON-HDL-C 80.2 MG/DL; POTASSIUM SERUM 4.8 MMOL/L (3.5-5.1); TOTAL PROTEIN 6.9 G/DL (5.7-8.2)
[2023-11-19 12:34] LABS: FERRITIN 9.2 NG/ML (7.3-270.7)
== END ==
LOC: M WUC 09:24
PROVIDERS: ATTEND Family Medicine
DX: I50.32 Chronic diastolic (congestive) heart failure (principal); E78.2 Mixed hyperlipidemia; E11.9 Type 2 diabetes mellitus without complications; D50.9 Iron deficiency anemia, unspecified

== ENCOUNTER → 2024-01-29 | Outpatient (CLI) | payer OTHER ==
[~2024-01-29] MED LIST changes: +ISOVUE-M 300 61% 15ML VIAL As Ordered ONE; +LIDOCAINE 1% SDV 30ML VIAL As Ordered ONE; -RAMI1CAP22 PO; +RAMI2.5C42 PO; +TRIAMCINOLONE ACETONIDE SUSP 40MG/ML 1ML VIAL As Ordered ONE; +diazePAM 2 MG TAB As Ordered ONE
== END ==
LOC: M PAIN 11:00
PROVIDERS: ATTEND Anesthesiology
DX: M51.16 Intervertebral disc disorders with radiculopathy, lumbar region (principal); G89.29 Other chronic pain; E11.9 Type 2 diabetes mellitus without complications; K21.9 Gastro-esophageal reflux disease without esophagitis; E78.2 Mixed hyperlipidemia; K76.0 Fatty (change of) liver, not elsewhere classified; I12.9 Hypertensive chronic kidney disease with stage 1 through stage 4 chronic kidney disease, or unspecified chronic kidney disease; E66.9 Obesity, unspecified; K59.00 Constipation, unspecified; M81.0 Age-related osteoporosis without current pathological fracture; N18.31 Chronic kidney disease, stage 3a; E55.9 Vitamin D deficiency, unspecified; E03.9 Hypothyroidism, unspecified; M47.816 Spondylosis without myelopathy or radiculopathy, lumbar region; Z87.891 Personal history of nicotine dependence; Z79.899 Other long term (current) drug therapy
CPT/HCPCS: 64493; J0665; J3301; Q9967

== ENCOUNTER → 2024-02-05 | Outpatient (CLI) | payer OTHER ==
[~2024-02-05] MED LIST changes: -ISOVUE-M 300 61% 15ML VIAL As Ordered ONE; -LIDOCAINE 1% SDV 30ML VIAL As Ordered ONE; -TRIAMCINOLONE ACETONIDE SUSP 40MG/ML 1ML VIAL As Ordered ONE; -diazePAM 2 MG TAB As Ordered ONE
== END ==
LOC: M PAIN 15:30
PROVIDERS: ATTEND Anesthesiology
DX: M51.16 Intervertebral disc disorders with radiculopathy, lumbar region (principal); M71.30 Other bursal cyst, unspecified site; M54.50 Low back pain, unspecified; E11.9 Type 2 diabetes mellitus without complications; E03.9 Hypothyroidism, unspecified; Z79.02 Long term (current) use of antithrombotics/antiplatelets; Z79.82 Long term (current) use of aspirin; Z79.84 Long term (current) use of oral hypoglycemic drugs; Z79.890 Hormone replacement therapy; Z91.048 Other nonmedicinal substance allergy status

== ENCOUNTER → 2024-03-30 | Outpatient (CLI) | payer OTHER ==
[~2024-03-30] MED LIST changes: +ONDA-282 PO
[2024-03-30 17:14] LABS: BASO % 0.3 % (0.0-1.0); EOS # 0.1 10^3/uL (0.0-0.5); HEMOGLOBIN 13.6 g/dl (12.0-15.5); LYMPH # 2.4 10^3/uL (1.5-5.0); LYMPH % 40.9 % (24.0-44.0); MEAN CORPUSCULAR HEMOGLOBIN 30.6 pg (27.0-33.0); MEAN CORPUSCULAR HGB CONC 32.4 g/dl (32.0-36.5); MEAN CORPUSCULAR VOLUME 94.4 fl (80.0-96.0); MONO # 0.5 10^3/uL (0.0-0.8); MONO % 8.6 % (2.0-8.0); NEUTROPHILS # 2.8 10^3/uL (1.5-8.5); NEUTROPHILS % 48.5 % (36.0-66.0); PLATELET COUNT, AUTOMATED 177 10^3/uL (150-450); RED BLOOD COUNT 4.45 10^6/uL (4.00-5.40); WHITE BLOOD COUNT 5.8 10^3/uL (4.0-10.0)
[2024-03-30 17:17] LABS: ALBUMIN 4.2 G/DL (3.2-5.2); ALKALINE PHOSPHATASE 43 U/L (46-116); ALT/SGPT 18 U/L (7.0-40); AST/SGOT 11 U/L (<34); BILIRUBIN,TOTAL 0.4 MG/DL (0.3-1.2); BLOOD UREA NITROGEN 24 MG/DL (9-23); CARBON DIOXIDE LEVEL 29 MMOL/L (20-31); CHLORIDE LEVEL 106 MMOL/L (98-107); CREATININE FOR GFR 1.26 MG/DL (0.55-1.30); GLOMERULAR FILTRATION RATE 43.7 (>39); GLUCOSE, FASTING 95 MG/DL (74-106); MAGNESIUM LEVEL 1.9 MG/DL (1.8-2.4); POTASSIUM SERUM 5.1 MMOL/L (3.5-5.1); SODIUM LEVEL 142 MMOL/L (136-145); TOTAL PROTEIN 7.1 G/DL (5.7-8.2)
[2024-03-30 17:18] LABS: FERRITIN 7.8 NG/ML (7.3-270.7); THYROID STIMULATING HORMONE 6.689 uIU/ML (0.55-4.78)
[2024-03-30 17:19] LABS: FREE T4 1.16 NG/DL (0.89-1.76); VITAMIN B12 LEVEL 1066 PG/ML (211-911)
[2024-03-30 17:23] LABS: HEMOGLOBIN A1c 5.8 % (4.0-6.0)
[2024-04-02 01:47] LABS: PROTEIN, TOTAL SO 7.5 g/dL (6.1-8.1)
[2024-04-05 08:48] LABS: ALBUMIN SO 4.8 g/dL (3.8-4.8); ALPHA 1 GLOBULINS SO 0.2 g/dL (0.2-0.3); ALPHA 2 GLOBULINS SO 0.9 g/dL (0.5-0.9); BETA 2 GLOBULIN SO 0.3 g/dL (0.2-0.5); BETA GLOBULIN SO 0.5 g/dL (0.4-0.6); GAMMA GLOBULINS SO 0.8 g/dL (0.8-1.7)
== END ==
LOC: M PLALAB 14:22
PROVIDERS: ATTEND Family Medicine
DX: D50.9 Iron deficiency anemia, unspecified (principal); E11.9 Type 2 diabetes mellitus without complications; I50.32 Chronic diastolic (congestive) heart failure; R07.9 Chest pain, unspecified; D47.2 Monoclonal gammopathy

== ENCOUNTER → 2024-03-30 | Outpatient (REF) | payer OTHER ==
[~2024-03-30] MED LIST changes: -ONDA-282 PO
== END ==
LOC: M SFHCPLAZ 14:09
PROVIDERS: ATTEND Family Medicine
DX: E11.9 Type 2 diabetes mellitus without complications (principal); D50.9 Iron deficiency anemia, unspecified; I50.32 Chronic diastolic (congestive) heart failure; R07.9 Chest pain, unspecified

== ENCOUNTER 2024-04-02 16:56 | Emergency (ER) | payer OTHER ==
[~2024-04-02] VITALS: Ht 160 cm; Wt 69.0 kg
[2024-04-02] MEDS: ONDANSETRON 4MG ORAL DISINTEGRATING TAB PO ONE (21:20)
[2024-04-02] MEDS ORDERED: ONDA-282 PO (21:46)
[2024-04-02 23:01] VITALS: BP 159/76; TEMP 98.1; O2SAT 100
== END 2024-04-02 23:02 | disposition home or self-care (01) ==
LOC: M ED 16:56
DX: S06.0X0A Concussion without loss of consciousness, initial encounter (principal); Y92.019 Unspecified place in single-family (private) house as the place of occurrence of the external cause; Y93.9 Activity, unspecified; Y99.9 Unspecified external cause status; Z91.048 Other nonmedicinal substance allergy status; Z79.1 Long term (current) use of non-steroidal anti-inflammatories (NSAID); Z79.2 Long term (current) use of antibiotics; Z79.899 Other long term (current) drug therapy

== ENCOUNTER → 2024-04-06 | Outpatient (CLI) | payer OTHER ==
[~2024-04-06] MED LIST changes: +ONDA-282 PO
== END ==
LOC: M PAIN 11:00
PROVIDERS: ATTEND Nurse Practitioner Family
DX: M51.16 Intervertebral disc disorders with radiculopathy, lumbar region (principal); M71.30 Other bursal cyst, unspecified site; G89.29 Other chronic pain; E11.22 Type 2 diabetes mellitus with diabetic chronic kidney disease; N18.31 Chronic kidney disease, stage 3a; K21.9 Gastro-esophageal reflux disease without esophagitis; E78.2 Mixed hyperlipidemia; K76.0 Fatty (change of) liver, not elsewhere classified; I12.9 Hypertensive chronic kidney disease with stage 1 through stage 4 chronic kidney disease, or unspecified chronic kidney disease; K59.00 Constipation, unspecified; E55.9 Vitamin D deficiency, unspecified; E03.9 Hypothyroidism, unspecified; G43.109 Migraine with aura, not intractable, without status migrainosus; Z87.891 Personal history of nicotine dependence; Z79.82 Long term (current) use of aspirin; Z79.890 Hormone replacement therapy; Z79.899 Other long term (current) drug therapy

== ENCOUNTER → 2024-07-12 | Outpatient (CLI) | payer OTHER ==
[~2024-07-12] MED LIST changes: -CYCL5TAB PO; +CYCL5TAB4 PO
== END ==
LOC: M PAIN 09:00
PROVIDERS: ATTEND Nurse Practitioner Family
DX: M51.16 Intervertebral disc disorders with radiculopathy, lumbar region (principal); M71.30 Other bursal cyst, unspecified site; G89.29 Other chronic pain; E11.22 Type 2 diabetes mellitus with diabetic chronic kidney disease; M47.812 Spondylosis without myelopathy or radiculopathy, cervical region; K21.9 Gastro-esophageal reflux disease without esophagitis; E78.2 Mixed hyperlipidemia; E66.9 Obesity, unspecified; I12.9 Hypertensive chronic kidney disease with stage 1 through stage 4 chronic kidney disease, or unspecified chronic kidney disease; E53.8 Deficiency of other specified B group vitamins; K59.09 Other constipation; M81.0 Age-related osteoporosis without current pathological fracture; N18.31 Chronic kidney disease, stage 3a; E55.9 Vitamin D deficiency, unspecified; M47.816 Spondylosis without myelopathy or radiculopathy, lumbar region; Z87.891 Personal history of nicotine dependence; Z79.82 Long term (current) use of aspirin; Z79.890 Hormone replacement therapy; Z79.899 Other long term (current) drug therapy

== ENCOUNTER → 2024-07-16 | Outpatient (CLI) | payer OTHER ==
[2024-07-16 10:51] LABS: BASO % 0.2 % (0.0-1.0); EOS # 0.1 10^3/uL (0.0-0.5); EOS % 1.4 % (0.0-3.0); HEMATOCRIT 38.3 % (36.0-47.0); LYMPH # 1.7 10^3/uL (1.5-5.0); LYMPH % 32.9 % (24.0-44.0); MEAN CORPUSCULAR HGB CONC 31.3 g/dl (32.0-36.5); MEAN CORPUSCULAR VOLUME 95.8 fl (80.0-96.0); MONO # 0.3 10^3/uL (0.0-0.8); MONO % 6.4 % (2.0-8.0); NEUTROPHILS % 58.9 % (36.0-66.0); PLATELET COUNT, AUTOMATED 170 10^3/uL (150-450); WHITE BLOOD COUNT 5.2 10^3/uL (4.0-10.0)
[2024-07-16 10:54] LABS: BILIRUBIN,TOTAL 0.3 MG/DL (0.3-1.2); CALCIUM LEVEL 9.3 MG/DL (8.3-10.6); CREATININE FOR GFR 1.31 MG/DL (0.55-1.30); GLOMERULAR FILTRATION RATE 41.8 (>39); POTASSIUM SERUM 4.3 MMOL/L (3.5-5.1); TOTAL PROTEIN 6.9 G/DL (5.7-8.2)
[2024-07-16 10:55] LABS: FERRITIN 7.5 NG/ML (7.3-270.7); PTH INTACT 48.4 PG/ML (18.5-88.0); THYROID STIMULATING HORMONE 16.421 uIU/ML (0.55-4.78); TOTAL 25(OH) VITAMIN D 32.9 NG/ML (20.0-100.0)
[2024-07-16 10:57] LABS: FREE T4 1.2 NG/DL (0.89-1.76)
[2024-07-20 14:27] LABS: ALBUMIN SO 4.5 g/dL (3.8-4.8); ALPHA 1 GLOBULINS SO 0.3 g/dL (0.2-0.3); ALPHA 2 GLOBULINS SO 0.8 g/dL (0.5-0.9); BETA 2 GLOBULIN SO 0.3 g/dL (0.2-0.5); BETA GLOBULIN SO 0.5 g/dL (0.4-0.6); GAMMA GLOBULINS SO 0.7 g/dL (0.8-1.7)
== END ==
LOC: M PLALAB 08:15
PROVIDERS: ATTEND Family Medicine
DX: E11.9 Type 2 diabetes mellitus without complications (principal); D50.9 Iron deficiency anemia, unspecified; D47.9 Neoplasm of uncertain behavior of lymphoid, hematopoietic and related tissue, unspecified

== ENCOUNTER 2024-07-21 11:52 | Outpatient (CLI) | payer OTHER ==
[~2024-07-21] VITALS: Ht 160 cm; Wt 60.5 kg
[2024-07-21 12:00] VITALS: BP 155/70; O2SAT 100
[2024-07-21] MEDS: ZOLEDRONIC ACID 5 MG in IV 1 EA IV ONE (12:20)
[2024-07-21 13:00] VITALS: BP 157/70; O2SAT 99
== END 2024-07-21 13:00 ==
LOC: M INFU 11:52
PROVIDERS: ATTEND Family Medicine
DX: M85.88 Other specified disorders of bone density and structure, other site (principal); Z91.048 Other nonmedicinal substance allergy status
CPT/HCPCS: 96365; J3489

== ENCOUNTER → 2024-09-10 | Outpatient (CLI) | payer MEDICARE ==
[2024-09-10 11:39] LABS: ALBUMIN 4.2 G/DL (3.2-5.2); BILIRUBIN,TOTAL 0.3 MG/DL (0.3-1.2); CALCIUM LEVEL 9.6 MG/DL (8.3-10.6); CREATININE FOR GFR 1.35 MG/DL (0.55-1.30); GLOMERULAR FILTRATION RATE 40.4 (>39); MAGNESIUM LEVEL 2.1 MG/DL (1.8-2.4); POTASSIUM SERUM 4.9 MMOL/L (3.5-5.1); TOTAL PROTEIN 7.4 G/DL (5.7-8.2)
[2024-09-10 11:43] LABS: FERRITIN 7.6 NG/ML (7.3-270.7); FREE T4 1.24 NG/DL (0.89-1.76); THYROID STIMULATING HORMONE 5.762 uIU/ML (0.55-4.78)
[2024-09-10 11:44] LABS: EOS % 0.7 % (0.0-3.0); HEMATOCRIT 39.7 % (36.0-47.0); HEMOGLOBIN 12.5 g/dl (12.0-15.5); LYMPH # 1.6 10^3/uL (1.5-5.0); LYMPH % 38.2 % (24.0-44.0); MEAN CORPUSCULAR HEMOGLOBIN 30.5 pg (27.0-33.0); MEAN CORPUSCULAR HGB CONC 31.5 g/dl (32.0-36.5); MEAN CORPUSCULAR VOLUME 96.8 fl (80.0-96.0); MONO # 0.4 10^3/uL (0.0-0.8); MONO % 10.3 % (2.0-8.0); NEUTROPHILS # 2.2 10^3/uL (1.5-8.5); NEUTROPHILS % 50.6 % (36.0-66.0); PLATELET COUNT, AUTOMATED 174 10^3/uL (150-450); WHITE BLOOD COUNT 4.3 10^3/uL (4.0-10.0)
[2024-09-10 12:02] LABS: HEMOGLOBIN A1c 6.4 % (4.0-6.0)
[2024-09-12 02:07] LABS: PROTEIN, TOTAL SO 7.2 g/dL (6.1-8.1)
[2024-09-14 06:53] LABS: ALBUMIN SO 4.6 g/dL (3.8-4.8); ALPHA 1 GLOBULINS SO 0.2 g/dL (0.2-0.3); ALPHA 2 GLOBULINS SO 0.9 g/dL (0.5-0.9); BETA 2 GLOBULIN SO 0.3 g/dL (0.2-0.5); BETA GLOBULIN SO 0.5 g/dL (0.4-0.6); GAMMA GLOBULINS SO 0.7 g/dL (0.8-1.7)
== END ==
LOC: M PLALAB 08:29
PROVIDERS: ATTEND Family Medicine
DX: D50.9 Iron deficiency anemia, unspecified (principal); E11.9 Type 2 diabetes mellitus without complications; D47.2 Monoclonal gammopathy; I50.32 Chronic diastolic (congestive) heart failure

== ENCOUNTER → 2024-09-13 | Outpatient (CLI) | payer MEDICARE, OTHER | LOC: M PAIN 09:00 | PROVIDERS: ATTEND Nurse Practitioner Family | DX: M51.16 Intervertebral disc disorders with radiculopathy, lumbar region (principal); M71.30 Other bursal cyst, unspecified site; G89.29 Other chronic pain; E11.22 Type 2 diabetes mellitus with diabetic chronic kidney disease; N18.31 Chronic kidney disease, stage 3a; K21.9 Gastro-esophageal reflux disease without esophagitis; M47.812 Spondylosis without myelopathy or radiculopathy, cervical region; E78.2 Mixed hyperlipidemia; I12.9 Hypertensive chronic kidney disease with stage 1 through stage 4 chronic kidney disease, or unspecified chronic kidney disease; K59.09 Other constipation; M81.0 Age-related osteoporosis without current pathological fracture; E55.9 Vitamin D deficiency, unspecified; E03.9 Hypothyroidism, unspecified; M47.817 Spondylosis without myelopathy or radiculopathy, lumbosacral region; Z87.891 Personal history of nicotine dependence; Z79.82 Long term (current) use of aspirin; Z79.890 Hormone replacement therapy; Z79.899 Other long term (current) drug therapy ==

== ENCOUNTER → 2024-12-03 | Outpatient (CLI) | payer MEDICARE | LOC: M WHC 10:54 | PROVIDERS: ATTEND Family Medicine | DX: Z12.31 Encounter for screening mammogram for malignant neoplasm of breast (principal); R92.323 Mammographic fibroglandular density, bilateral breasts ==

== ENCOUNTER → 2025-05-11 | Outpatient (CLI) | payer MEDICARE, OTHER ==
[~2025-05-11] MED LIST changes: -ACE65ERTAB PO; +ACET-1387 PO; +DIVA-41 PO; -DIVA500T94 PO
[2025-05-11 11:12] LABS: BASO # 0.0 10^3/uL (0.0-0.2); BASO % 0.2 % (0.0-1.0); EOS # 0.0 10^3/uL (0.0-0.5); EOS % 0.9 % (0.0-3.0); LYMPH # 1.6 10^3/uL (1.5-5.0); LYMPH % 35.5 % (24.0-44.0); MONO # 0.5 10^3/uL (0.0-0.8); MONO % 10.4 % (2.0-8.0); NEUTROPHILS # 2.4 10^3/uL (1.5-8.5); NEUTROPHILS % 52.6 % (36.0-66.0); PLATELET COUNT, AUTOMATED 182 10^3/uL (150-450)
[2025-05-11 11:26] LABS: ESTIMATED AVERAGE GLUCOSE 137.0 MG/DL (60-110)
[2025-05-11 11:45] LABS: ALT/SGPT 15.0 U/L (7.0-40); AST/SGOT 18.0 U/L (<34); CALCIUM LEVEL 10.4 MG/DL (8.3-10.6); CARBON DIOXIDE LEVEL 28.0 MMOL/L (20-31); CHLORIDE LEVEL 104.0 MMOL/L (98-107); CHOLESTEROL LEVEL 145.0 MG/DL (<200); CHOLESTEROL RISK RATIO 2.16 (<5); CREATININE FOR GFR 1.46 MG/DL (0.55-1.30); FREE T4 1.23 NG/DL (0.89-1.76); GLOMERULAR FILTRATION RATE 36.4 (>39); LDL CHOLESTEROL 62.5 MG/DL (<100); MAGNESIUM LEVEL 1.9 MG/DL (1.8-2.4); NON-HDL-C 78.1 MG/DL; POTASSIUM SERUM 5.0 MMOL/L (3.5-5.1); PTH INTACT 28.5 PG/ML (18.5-88.0); SODIUM LEVEL 142.0 MMOL/L (136-145); TRIGLYCERIDES LEVEL 78.0 MG/DL (<150)
[2025-05-11 11:46] LABS: TOTAL 25(OH) VITAMIN D 35.8 NG/ML (20.0-100.0)
== END ==
LOC: M PLALAB 07:44
PROVIDERS: ATTEND Family Medicine
DX: D50.9 Iron deficiency anemia, unspecified (principal); E07.9 Disorder of thyroid, unspecified; E78.00 Pure hypercholesterolemia, unspecified; E11.9 Type 2 diabetes mellitus without complications; I50.32 Chronic diastolic (congestive) heart failure; E55.9 Vitamin D deficiency, unspecified; D47.2 Monoclonal gammopathy

== ENCOUNTER 2025-06-06 10:31 | Outpatient (CLI) | payer MEDICARE ==
[~2025-06-06] VITALS: Ht 160 cm; Wt 59.9 kg
[~2025-06-06 10:31] MED LIST changes: -ACET-1387 PO; +ACET-1593 PO; +ALBUTEROL SULFATE 2.5 MG/0.5 ML INH CONCENTRATE NEB SOLN INH PRN; +EPINEPHrine INJ 1 MG/ML 1ML AMP IM PRN; +diphenhydrAMINE 50 MG/ML VIAL IV PRN
[2025-06-06 10:45] VITALS: BP 181/74; O2SAT 100
[2025-06-06] MEDS: IRON SUCROSE 500 MG in NS 250 ML OVER 4 HRS IV ONE (11:24)
[2025-06-06 13:30] VITALS: BP 143/67; O2SAT 100
[2025-06-06 14:30] VITALS: BP 140/70; O2SAT 99
[2025-06-06 15:50] VITALS: BP 80/50; O2SAT 98
[2025-06-06 16:00] VITALS: BP 123/59; O2SAT 99
[2025-06-06] MEDS: ONDANSETRON 4MG 2ML VIAL IV ONE (16:02)
[2025-06-06 16:30] VITALS: BP 118/56; O2SAT 100
== END 2025-06-06 16:30 | disposition home or self-care (01) ==
LOC: M INFU 10:31
PROVIDERS: ATTEND Family Medicine
DX: D50.9 Iron deficiency anemia, unspecified (principal); Z91.048 Other nonmedicinal substance allergy status
CPT/HCPCS: 96365; 96366; 96375; J1756; J2405

== ENCOUNTER 2025-06-13 10:23 | Outpatient (CLI) | payer MEDICARE ==
[~2025-06-13] VITALS: Ht 160 cm; Wt 59.5 kg
[2025-06-13 10:30] VITALS: BP 137/62; O2SAT 98
[2025-06-13] MEDS: IRON SUCROSE 500 MG in NS 250 ML OVER 4 HRS IV ONE (11:03)
[2025-06-13 11:30] VITALS: BP 130/66; O2SAT 97
[2025-06-13 12:30] VITALS: BP 148/71; O2SAT 97
[2025-06-13 13:30] VITALS: BP 154/83; O2SAT 98
[2025-06-13 15:00] VITALS: BP 154/71; O2SAT 97
== END 2025-06-13 15:05 | disposition home or self-care (01) ==
LOC: M INFU 10:23
PROVIDERS: ATTEND Family Medicine
DX: D50.9 Iron deficiency anemia, unspecified (principal); Z91.048 Other nonmedicinal substance allergy status
CPT/HCPCS: 96365; 96366; J1756

== ENCOUNTER → 2025-06-24 | Outpatient (CLI) | payer MEDICARE ==
[~2025-06-24] MED LIST changes: -ALBUTEROL SULFATE 2.5 MG/0.5 ML INH CONCENTRATE NEB SOLN INH PRN; -EPINEPHrine INJ 1 MG/ML 1ML AMP IM PRN; -diphenhydrAMINE 50 MG/ML VIAL IV PRN
== END ==
LOC: M RAD 06:39
PROVIDERS: ATTEND Family Medicine
DX: N18.31 Chronic kidney disease, stage 3a (principal); I12.9 Hypertensive chronic kidney disease with stage 1 through stage 4 chronic kidney disease, or unspecified chronic kidney disease

== ENCOUNTER → 2025-07-20 | Outpatient (CLI) | payer MEDICARE ==
[2025-07-20 11:28] LABS: BASO # 0.0 10^3/uL (0.0-0.2); BASO % 0.2 % (0.0-1.0); EOS # 0.1 10^3/uL (0.0-0.5); EOS % 1.7 % (0.0-3.0); LYMPH # 1.6 10^3/uL (1.5-5.0); LYMPH % 29.2 % (24.0-44.0); MONO # 0.4 10^3/uL (0.0-0.8); MONO % 6.9 % (2.0-8.0); NEUTROPHILS # 3.3 10^3/uL (1.5-8.5); NEUTROPHILS % 61.6 % (36.0-66.0); PLATELET COUNT, AUTOMATED 189 10^3/uL (150-450)
[2025-07-20 11:31] LABS: ALT/SGPT 15.0 U/L (7.0-40); AST/SGOT 15.0 U/L (<34); CALCIUM LEVEL 9.2 MG/DL (8.3-10.6); CARBON DIOXIDE LEVEL 26.0 MMOL/L (20-31); CHLORIDE LEVEL 104.0 MMOL/L (98-107); CREATININE FOR GFR 1.23 MG/DL (0.55-1.30); FREE T4 1.67 NG/DL (0.89-1.76); GLOMERULAR FILTRATION RATE 44.7 (>39); MAGNESIUM LEVEL 1.9 MG/DL (1.8-2.4); POTASSIUM SERUM 5.1 MMOL/L (3.5-5.1); PTH INTACT 55.9 PG/ML (18.5-88.0); SODIUM LEVEL 141.0 MMOL/L (136-145); TOTAL 25(OH) VITAMIN D 44.4 NG/ML (20.0-100.0); VITAMIN B12 LEVEL 474.0 PG/ML (211-911)
[2025-07-20 12:00] LABS: ESTIMATED AVERAGE GLUCOSE 120.0 MG/DL (60-110)
[2025-07-21 17:46] LABS: PROTEIN, TOTAL SO 6.8 g/dL (6.1-8.1)
[2025-07-25 06:37] LABS: ALBUMIN SO 4.2 g/dL (3.8-4.8); ALPHA 1 GLOBULINS SO 0.3 g/dL (0.2-0.3); ALPHA 2 GLOBULINS SO 0.9 g/dL (0.5-0.9); BETA 2 GLOBULIN SO 0.3 g/dL (0.2-0.5); BETA GLOBULIN SO 0.4 g/dL (0.4-0.6); GAMMA GLOBULINS SO 0.7 g/dL (0.8-1.7)
[2025-07-27 00:46] LABS: ALPHA 2-MACROGLOBULINS,QN 386 mg/dL (106-279); ALT (SGPT) P5P 9 U/L (6-29); APOLIPOPROTEIN A-1 145 mg/dL (101-198); FIBROSIS SCORE 0.46; FIBROSIS STAGE MINIMAL FIBROSIS (F0); GGT 13 U/L (3-65); HAPTOGLOBIN 174 mg/dL (43-212); NECROINFLAM ACT GRADE NO ACTIVITY (A0); NECROINFLAM ACT SCORE 0.03
== END ==
LOC: M PLALAB 07:55
PROVIDERS: ATTEND Family Medicine
DX: D50.9 Iron deficiency anemia, unspecified (principal); E11.9 Type 2 diabetes mellitus without complications; I50.32 Chronic diastolic (congestive) heart failure; E55.9 Vitamin D deficiency, unspecified; D47.2 Monoclonal gammopathy; E03.9 Hypothyroidism, unspecified; K76.0 Fatty (change of) liver, not elsewhere classified

== ENCOUNTER → 2025-08-10 | Outpatient (REF) | payer MEDICARE ==
[~2025-08-10] MED LIST changes: +ACET-1387 PO; -ACET-1593 PO
== END ==
LOC: M LAB REF 13:31
PROVIDERS: ATTEND Student in an Organized Health Care Education/Training Program
DX: R30.0 Dysuria (principal)

== ENCOUNTER → 2025-08-18 | Outpatient (CLI) | payer MEDICARE, OTHER ==
[2025-08-18 15:41] LABS: ALT/SGPT 12.0 U/L (7.0-40); AST/SGOT 16.0 U/L (<34); CALCIUM LEVEL 9.2 MG/DL (8.3-10.6); CARBON DIOXIDE LEVEL 28.0 MMOL/L (20-31); CHLORIDE LEVEL 108.0 MMOL/L (98-107); CREATININE FOR GFR 1.17 MG/DL (0.55-1.30); GLOMERULAR FILTRATION RATE 47.5 (>39); POTASSIUM SERUM 4.5 MMOL/L (3.5-5.1); SODIUM LEVEL 144.0 MMOL/L (136-145)
== END ==
LOC: M PLALAB 12:09
PROVIDERS: ATTEND Family Medicine
DX: E11.9 Type 2 diabetes mellitus without complications (principal)